=== PATIENT | male | born 1930 | race Caucasian/White ===

== ENCOUNTER 2018-02-06 01:04 | Inpatient (IN) | payer MEDICARE, MEDICAID ==
[2018-02-06] VITALS (8 sets, daily range): BP systolic 104–127; BP diastolic 59–75
[~2018-02-06] VITALS: Ht 182.9 cm; Wt 78.5 kg
[2018-02-06] MEDS ORDERED: Albuterol ud Inhalation HHN ONE (01:15)
--- NOTE | 2018-02-06 01:18 | Emergency Room Report ---
History of Present Illness General Chief Complaint: Dyspnea/Respdistress Source: Family Member, Medical Record, EMS Present Illness HPI Is an 87-year-old male who has history of dementia and coronary disease, A. fib. He presents with chief complaint respiratory distress. Onset was acute and occurred just prior to arrival. At baseline he is confused but per EMS, mental status as worse. No fever or chills noted. No nausea no vomiting. EMS put him on oxygen and brought him here. Unable to get any history from this patient because of his condition and mental status. Allergies: Coded Allergies: APIXABAN (Unverified Allergy, Unknown, 02/06/18) BUMETANIDE (Unverified Allergy, Unknown, 02/06/18) SPIRONOLACTONE (Unverified Allergy, Unknown, 02/06/18) Patient History Past Medical History: see triage record, old chart reviewed, HTN, CAD, CHF Past Surgical History: other Pertinent Family History: none Social History: Denies: smoking Immunizations: other Reviewed Nursing Documentation: PMH: Agreed; PSxH: Agreed Review of Systems Respiratory: Reports: shortness of breath All Other Systems: limited - secondary to medical condition Physical Exam Vital Signs Date Time Temp Pulse Resp B/P (MAP) Pulse Ox O2 Delivery O2 Flow Rate FiO2 02/06/18 00:59 80 127/67 vitals with hypoxia Sp02 EP Interpretation: abnormal General Appearance: moderate distress, thin, Chronically Ill Head: normocephalic, atraumatic Eyes: bilateral eye PERRL, bilateral eye EOMI ENT: dry mucus membranes Neck: full range of motion, supple, no meningismus Respiratory: chest non-tender, accessory muscle use, rales, rhonchi Cardiovascular #1: regular rate, rhythm, no murmur Gastrointestinal: normal bowel sounds, non tender, no mass, no organomegaly, no bruit, non-distended Musculoskeletal: back normal, normal range of motion Neurologic: other - moan to painful stimuli Skin: warm/dry Procedures Critical Care Time Critical Care Time Critical care is mandated in this patient who presented with sepsis and CHF. Patient require my urgent intervention to attenuate the risks of metabolic collapse which may lead to cardiovascular collapse and . Critical care time is 35 minutes excluding any reportable procedure. Critical care time included evaluation, multiple reevaluation, looking at old charts, interpreting laboratory and diagnostic data, discussing case with patient and family and consultants, and charting. Medical Decision Making Diagnostic Impression: Primary Impression: CHF (congestive heart failure) Qualified Codes: I50.9 - Heart failure, unspecified Additional Impressions: Sepsis Qualified Codes: A41.9 - Sepsis, unspecified organism UTI (urinary tract infection) Qualified Codes: N30.00 - Acute cystitis without hematuria CKD (chronic kidney disease) Qualified Codes: N18.9 - Chronic kidney disease, unspecified Anemia Qualified Codes: D64.9 - Anemia, unspecified Proteinuria Qualified Codes: R80.9 - Proteinuria, unspecified Toxic metabolic encephalopathy ER Course Patient presents with respiratory distress and has a fever 102. Urine show evidence of infection. His respiratory distress much improved with breathing treatment and BiPAP. Antibiotic started. No obvious pneumonia. No evidence of PE, dissection, temp and not to name a few. We'll admit to stepdown unit. I contacted Dr. Berry for admission. Lab Results Impression labs showed elevated BNP EKG Diagnostic Results Rate: normal Rhythm: other - paced rhythm Rhythm Strip Diag. Results Rhythm Strip Time: 01:18 EP Interpretation: yes Rate: 76 Rhythm: NSR, no PVC's, no ectopy Chest X-Ray Diagnostic Results Chest X-Ray Diagnostic Results : Chest X-Ray Ordered: Yes # of Views/Limited/Complete: 1 View Indication: Shortness of Breath EP Interpretation: Yes Interpretation: no consolidation, no effusion, no pneumothorax, other - cardiomegaly with vascular congestion Impression: Other - CHF Electronically Signed by: Aj Page MD Last Vital Signs Date Time Temp Pulse Resp B/P (MAP) Pulse Ox O2 Delivery O2 Flow Rate FiO2 02/06/18 00:59 80 127/67 Status: improved Disposition: ADMITTED INPATIENT Condition: Serious AJ PAGE M.D. Feb 06, 2018 01:18
[2018-02-06] MEDS ORDERED: Acetaminophen 650 MG SUPP RECTAL ONE (01:30)
[2018-02-06 01:36] LABS: BASOPHILS % (AUTO) 0.4 % (0.0-2.0); BILIRUBIN, URINE NEGATIVE (NEGATIVE); COLOR,URINE PALE YELLOW; EOSINOPHILS % (AUTO) 1.4 % (0.0-3.0); GLUCOSE, URINE (UA) NEGATIVE (NEGATIVE); HEMATOCRIT 31.4 % (42.0-52.0); HEMOGLOBIN 9.9 G/DL (14.2-18.0); KETONES,URINE NEGATIVE (NEGATIVE); LEUKOCYTE ESTERASE ,URINE 3+ (NEGATIVE); LYMPHOCYTES % (AUTO) 29.8 % (20.0-45.0); MEAN CORPUSCULAR VOLUME 102 FL (80-99); MONOCYTES % (AUTO) 9.3 % (1.0-10.0); NEUTROPHILS % (AUTO) 59.1 % (45.0-75.0); NITRITE,URINE NEGATIVE (NEGATIVE); PH,URINE 5 (4.5-8.0); PLATELET COUNT 203 K/UL (150-450); PROTEIN,URINE 2+ (NEGATIVE); RED BLOOD COUNT 3.08 M/UL (4.70-6.10); RED CELL DISTRIBUTION WIDTH 14.9 % (11.6-14.8); UROBILINOGEN,URINE NORMAL MG/DL (0.0-1.0); WHITE BLOOD COUNT 5.1 K/UL (4.8-10.8)
[2018-02-06 01:45] LABS: APPEARANCE,URINE SLIGHTLY CLOUDY
[2018-02-06 01:46] LABS: ANION GAP 4 mmol/L (5-15); BLOOD UREA NITROGEN 51 mg/dL (7-18); CALCIUM 9.3 MG/DL (8.5-10.1); CARBON DIOXIDE 35 MMOL/L (21-32); CHLORIDE 107 MMOL/L (98-107); CREATININE 2.2 MG/DL (0.55-1.30); POTASSIUM 4.2 MMOL/L (3.5-5.1); SODIUM 146 MMOL/L (136-145)
[2018-02-06 01:48] LABS: INR 1.1 (0.9-1.1)
[2018-02-06 02:00] LABS: ALANINE AMINOTRANSFERASE < 6 U/L (12-78); ALBUMIN/GLOBULIN RATIO 0.7 (1.0-2.7); ALKALINE PHOSPHATASE 84 U/L (46-116); ASPARTATE AMINO TRANSFERASE 13 U/L (15-37); BILIRUBIN,TOTAL 0.4 MG/DL (0.2-1.0); CKMB 0.8 NG/ML (0.0-3.6); CREATINE KINASE 36 U/L (26-308)
[2018-02-06] MEDS ORDERED: COUMADIN3 MG ORAL (02:07)
[2018-02-06] MEDS ORDERED: DIGOXIN125 MCG ORAL (02:07)
[2018-02-06] MEDS ORDERED: MILK OF MA400 MG/51 ORAL (02:07)
[2018-02-06] MEDS ORDERED: CALCIUM CARBON500 M1 PO (02:07)
[2018-02-06] MEDS ORDERED: LANTUS SOL100 UNIT/1 SUBQ (02:07)
[2018-02-06] MEDS ORDERED: CATAPRES0.1 MG ORAL (02:07)
[2018-02-06] MEDS ORDERED: FUROSEMIDE40 MG ORAL (02:07)
[2018-02-06] MEDS ORDERED: Cefepime HCl 1 GM in D5W 55 ML IVPB ONE (02:15)
[2018-02-06] MEDS ORDERED: VITAMIN C250 MG ORAL (02:42)
[2018-02-06] MEDS ORDERED: VITAMIN B COMP1 EAC2 ORAL (02:42)
[2018-02-06] MEDS ORDERED: MULTIVITAMINS1 EAC2 ORAL (02:42)
[2018-02-06] MEDS ORDERED: OMEPRAZOLE20 M2 ORAL (02:42)
[2018-02-06] MEDS ORDERED: ACETAMINOPHEN325 M1 ORAL (02:42)
[2018-02-06] MEDS ORDERED: SENOKOT8.6 MG PO (02:42)
[2018-02-06] MEDS ORDERED: NAMENDA10 MG ORAL (02:42)
[2018-02-06] MEDS ORDERED: SINEMET 25-1001 EAC1 ORAL (02:42)
[2018-02-06] MEDS ORDERED: VITAMIN D22000 UNIT PO (02:42)
[2018-02-06] MEDS ORDERED: BISACODYL10 M1 RC (02:42)
[2018-02-06] MEDS ORDERED: PROSCAR5 MG ORAL (02:49)
[2018-02-06] MEDS ORDERED: GLUCAGON EMERGEN1 MG IJ (02:49)
[2018-02-06] MEDS ORDERED: GLUCOSE4 GM PO (02:49)
[2018-02-06] MEDS ORDERED: LATANOPROST2.5 ML BOTH EYES (02:49)
[2018-02-06] MEDS ORDERED: COLACE100 MG ORAL (02:49)
[2018-02-06] MEDS ORDERED: DUONEB 0.5-3(2.53 ML HHN (02:49)
[2018-02-06] MEDS ORDERED: FERROUS SU220 MG/51 PO (02:49)
[2018-02-06] MEDS ORDERED: FOLIC ACID1 MG ORAL (02:49)
[2018-02-06] MEDS ORDERED: TRUSOPT10 ML RIGHT EYE (02:49)
[2018-02-06] MEDS ORDERED: Albuterol/Ipratropium 3ml neb HHN SCH ×2 (09:00→09:18)
[2018-02-06] MEDS: Docusate 100mg cap ORAL SCH ×2 (09:00→17:18)
[2018-02-06] MEDS: Memantine 10mg tab ORAL SCH ×2 (09:00→17:18)
[2018-02-06] MEDS: Vitamin D 1000 IU Tab ORAL SCH (09:00)
[2018-02-06] MEDS: Digoxin 0.125mg tab ORAL SCH (09:00)
[2018-02-06] MEDS: Milk of Magnesia 30ml Ud ORAL SCH (09:00)
[2018-02-06] MEDS: Levodopa/Carbidopa 25/100 tab ORAL SCH ×4 (09:00→21:00)
[2018-02-06] MEDS: Ascorbic Acid 500mg tab ORAL SCH (09:00)
[2018-02-06] MEDS: Levemir Flexpen SUBQ SCH ×2 (09:19→18:00)
[2018-02-06] MEDS ORDERED: Enoxaparin 80mg Inj SUBQ SCH (10:00)
--- NOTE | 2018-02-06 11:15 | History and Physical Report ---
DATE OF ADMISSION: 02/06/2018 CHIEF COMPLAINT: Shortness of breath, sepsis, urinary tract infection. HISTORY OF PRESENT ILLNESS: The patient is an unfortunate 87-year-old male. He has history of COPD, congestive heart failure, paroxysmal AFib, diabetes, and hypertension. He has prior history of aspiration pneumonia and recent history of urinary tract infection. He was transferred from a shelter facility after staff noted that the patient was poorly responsive. He was unable to be aroused. Vital signs were stable. On evaluation in the emergency room, the patient had evidence of urinary tract infection. He was also short of breath. He also had evidence of congestive heart failure on x-ray. He was started on Lasix, BiPAP. He was given intravenous antibiotics for infection and is now admitted for further evaluation and care. PAST MEDICAL HISTORY: As above. PAST SURGICAL HISTORY: None. CURRENT MEDICATIONS: Reconciled and reviewed. ALLERGIES: Include apixaban, Bumex, Aldactone. FAMILY HISTORY: Noncontributory. SOCIAL HISTORY: There is no known history of tobacco, ethanol, or drugs. REVIEW OF SYSTEMS: From the patient is unobtainable as he is currently weak. PHYSICAL EXAMINATION: VITAL SIGNS: Temperature 100 degrees, pulse 75, respirations 20, blood pressure 116/75. GENERAL: The patient is a well-developed male, in no apparent distress. HEART: Regular rate and rhythm. LUNGS: Clear. ABDOMEN: Soft, nontender, nondistended. EXTREMITIES: Without clubbing, cyanosis, or edema. LABORATORY DATA: White count was 5, hemoglobin 10, hematocrit 31, and platelets of 203,000. Coags are normal. Sodium 146, potassium 4.2, chloride 107, bicarbonate 35, BUN 51, creatinine 2.2. Troponin 0.074. Urine showed 40 to 60 wbc's. ASSESSMENT: This is a pleasant, but unfortunate male with complaints of sepsis secondary to UTI and CHF exacerbation. PROBLEM LIST: 1. Sepsis. 2. UTI. 3. Respiratory failure. 4. CHF exacerbation. 5. AFib. 6. Hypertension. 7. Diabetes. 8. History of chronic kidney disease. PLAN: We will continue BiPAP. Check an ABG. Supplemental oxygen as needed. We will wean as able. Pulmonary consultation will be obtained. Continue broad-spectrum antibiotics. Follow up cultures. ID consultation. Continue antiplatelet therapy and Coumadin. Cardiology consultation will also be obtained. The patient has advanced directive for DNR. We will monitor the patient's renal function and volume status closely while on diuretic therapy. Sai Berry M.D. DR: Majo JOB#: [id number] CC:
[2018-02-06] MEDS: Albuterol/Ipratropium 3ml neb HHN SCH ×4 (11:19→22:52)
--- NOTE | 2018-02-06 12:08 | Diagnostic Imaging Report ---
Indication: Shortness of breath shortness of breath Technique: One view of the chest Comparison: none Findings: There is thoracic scoliotic deformity. There is some atelectasis in the left perihilar region and left lung base. Lungs and pleural spaces are otherwise grossly clear. There is a left chest biventricular AICD. The heart is upper limits of normal in size Impression: Left basilar and perihilar atelectasis. No definite acute process otherwise Other findings as noted
[2018-02-06] MEDS: NovoLOG Insulin Flexpen SUBQ SCH ×3 (12:46→21:00)
[2018-02-06] MEDS: Dorzolamide 2% 10ml Btl RIGHT EYE SCH ×2 (13:00→18:43)
[2018-02-06] MEDS: Piperacillin/Tazobactam 3.375 GM in D5W 110 ML IVPB SCH ×2 (14:02→22:09)
[2018-02-06] MEDS ORDERED: Warfarin Sodium 3mg ORAL ONE (17:00)
--- NOTE | 2018-02-06 20:30 | Consultation ---
DATE OF CONSULTATION: 02/06/2018 CONSULTING PHYSICIAN: Imer Garcia M.D. REFERRING PHYSICIAN: Sai Berry M.D. REASON FOR CONSULTATION: For evaluation of UTI. HISTORY OF PRESENT ILLNESS: This is an 87-year-old male, who is known to me from recent evaluation at [facility]. The patient has a history of BPH. He has a history of hematuria. He was admitted to the hospital because of altered mental status. He was poorly arousable. He was evaluated in the emergency room, was noted to have pyuria and possible UTI. Urology evaluation is requested. Chahal catheter was placed at the time of admission and is currently indwelling. PAST MEDICAL HISTORY: Significant for above. Also, history of COPD, CHF, atrial fibrillation, diabetes, hypertension, and aspiration pneumonia. PAST SURGICAL HISTORY: Unknown. CURRENT MEDICATIONS: Here in the hospital, the patient is on , Senokot, vitamin D, Zosyn, NovoLog, albuterol, Lovenox, Trusopt, calcium carbonate, Sinemet, Catapres, digoxin, Colace, finasteride, folate, MOM, Namenda, multivitamin, vitamin D, Feosol, Protonix, Lasix, and Coumadin. ALLERGIES: To apixaban, , spironolactone. SOCIAL HISTORY: Resident of half-way. FAMILY HISTORY: Unable to obtain. REVIEW OF SYSTEMS: Difficult to obtain. PHYSICAL EXAMINATION: GENERAL: Elderly male. VITAL SIGNS: Temperature is 98.7 degrees, blood pressure 111/60, pulse 75, and respirations are 20. HEENT: Normocephalic. NECK: Supple. ABDOMEN: Soft. Chahal is in place. Urine is still grossly yellow. LABORATORY AND DIAGNOSTIC DATA: His BUN is 51, creatinine 2.2, and potassium is 4.2. White count 5.1, hemoglobin 9.9, and platelets are 203. Urinalysis shows 0 to 2 rbc's, 40 to 60 wbc's and 2+ protein. Diagnostic imaging studies; he had a chest x-ray, which showed left basilar and perihilar atelectasis. IMPRESSION: 1. Pyuria and probable urinary tract infection. 2. Proteinuria. 3. Benign prostatic hypertrophy history. 4. Urinary retention. 5. Neurogenic bladder. 6. Chronic renal insufficiency. PLAN AND DISCUSSION: The patient needs to continue with antibiotics as ordered. We will follow up on the results of urine culture and adjust accordingly. The patient has a Chahal catheter indwelling. He is on anticoagulation, this will be monitored and irrigated p.r.n. if he develops gross hematuria. He is to continue with finasteride as ordered. I will also add Flomax 0.4 mg nightly in anticipation of a voiding trial in the future. The patient will need to have cystoscopy at some point and we will consider upper tract imaging studies. Thank you, Dr. Berry, for asking me to participate in this consultation. Imer Garcia M.D. DR: DANIEL JOB#: [id number] CC:
[2018-02-06] MEDS: Latanoprost 0.005% Opth 2.5ml Soln BOTH EYES SCH (20:49)
[2018-02-06] MEDS: Vitamin B Complex Tab ORAL SCH (21:00)
[2018-02-06] MEDS: Sennosides 8.6mg ORAL SCH (21:00)
[2018-02-06] MEDS: Tamsulosin 0.4mg cap ORAL SCH (21:00)
--- NOTE | 2018-02-06 21:30 | Consultation ---
DATE OF CONSULTATION: 02/06/2018 INFECTIOUS DISEASES CONSULTATION CONSULTING PHYSICIAN: Anu Langston M.D. REFERRING PHYSICIAN: Sai Berry M.D. REASON FOR CONSULTATION: Urinary tract infection. HISTORY OF PRESENTING ILLNESS: This is an 87-year-old gentleman with history of diabetes, hypertension, chronic obstructive pulmonary disease, congestive heart failure, and atrial fibrillation, who comes in from a senior care facility as he was unable to be aroused and was poorly responsive. He had a chest x-ray, which showed congestive heart failure. He was also found to have urinary tract infection and an Infectious Diseases consultation has been obtained for antibiotics. PAST MEDICAL HISTORY: 1. History of diabetes. 2. Hypertension. 3. Chronic obstructive pulmonary disease. 4. Congestive heart failure. 5. Atrial fibrillation. MEDICATIONS: As an inpatient, he is on Xalatan drops, Senokot, vitamin B complex, Coumadin, Zosyn, insulin, ipratropium and albuterol, Trusopt, enoxaparin, calcium carbonate, carbidopa, levodopa, clonidine, digoxin, docusate, finasteride, folic acid, milk of magnesia, Namenda, multivitamin, ascorbic acid, vitamin D, ferrous sulfate, insulin, Protonix, Lasix, warfarin, Tylenol, and Dulcolax. ALLERGIES: 1. Apixaban. 2. Bumetanide. 3. Spironolactone. SOCIAL HISTORY: No history of smoking, alcohol, or drug use. FAMILY HISTORY: Unknown. REVIEW OF SYSTEMS: Unable to obtain currently. PHYSICAL EXAMINATION: VITAL SIGNS: Temperature of 98.1, T-max of 102, pulse of 78, respiratory rate of 22, blood pressure of 104/64, and O2 saturation of 96%. HEENT: Pupils equally reactive to light and accommodation. Mouth appears clean without thrush. NECK: Supple. No adenopathy. No JVD. CARDIOVASCULAR: Regular rate and rhythm. No murmurs. LUNGS: Clear to auscultation bilaterally. No crackles. No wheezes. ABDOMEN: Soft and nontender. No organomegaly. EXTREMITIES: No cyanosis, no clubbing, no edema. LABORATORY AND DIAGNOSTIC DATA: White count 5.1, hemoglobin 9.9, hematocrit 31.4, MCV 102, and platelet count of 203,000 with neutrophils of 59%. Sodium 146, potassium 4.2, chloride 109, bicarb 35, BUN 51, creatinine 2.2, glucose 228, and calcium 9.3. Total bilirubin 0.4. AST 13, ALT less than 6, and alkaline phosphatase 84. CK of 36 and CK-MB 0.8. Troponin 0.074. Beta-natriuretic peptide 11,646. Total protein 7.6. Albumin of 3. UA is showing 40 to 60 white cells. Urine cultures are pending. Chest x-ray is showing left base and perihilar atelectasis. ASSESSMENT: This is an 87-year-old gentleman with history of diabetes, hypertension, and chronic obstructive pulmonary disease, who comes in with, 1. Urinary tract infection. 2. Renal failure. 3. Congestive heart failure. PLAN: 1. Continue Zosyn for now. 2. We will follow up cultures and adjust antibiotics accordingly. I would like to thank, Dr. Berry, for this consultation. Anu Langston M.D. DR: SHANE JOB#: [id number] CC: Sai Berry M.D.
[2018-02-07] VITALS: BP 113/67
--- NOTE | 2018-02-07 00:30 | Consultation ---
DATE OF CONSULTATION: 02/06/2018 CARDIOLOGY CONSULTATION CONSULTING PHYSICIAN: Charlie Ashraf M.D. REQUESTING PHYSICIAN: Sai Berry M.D. REASON FOR CONSULTATION: Congestive heart failure in the setting of cardiomyopathy with cardiac defibrillator. HISTORY OF PRESENT ILLNESS: This 87-year-old male with multiple cardiopulmonary problems and a cardiac defibrillator was noted to be increasingly withdrawn, lethargic, and poorly responsive prompting his transfer to this emergency room. A diagnostic workup was undertaken and hospitalization initiated with concerns raised over an acute urinary infection, sepsis, and congestive heart failure. The patient was recently hospitalized at [facility] for urinary infection and aspiration pneumonia. His course was complicated by cardiac arrhythmias and congestive heart failure. He also has had episodes of hypovolemia and dehydration with acute renal failure. PAST MEDICAL HISTORY: Includes hypertensive heart disease, chronic systolic and diastolic congestive heart failure, cardiac defibrillator, paroxysmal atrial fibrillation, COPD, hypertensive heart disease, [id number] diabetes mellitus, prostatic hypertrophy, recurrent urinary tract infections, chronic kidney disease. MEDICATIONS: Prior to admission, reviewed and reconciled. ALLERGIES: Include Aldactone, bumetanide, Apixaban. FAMILY HISTORY: Noncontributory. SOCIAL HISTORY: Prior smoker. No alcohol or substance abuse at this time. REVIEW OF SYSTEMS: Not obtainable from patient presently. PHYSICAL EXAMINATION: GENERAL: Withdrawn and lethargic. VITAL SIGNS: Blood pressure 116/75, pulse 75, respiratory rate 20, temperature 100. HEENT: Temporal wasting. Pale conjunctivae. Arcus senilis. Oropharynx clear. Mucous membranes dry. NECK: Supple. Jugular venous pressure is slightly elevated. There is some accessory muscle use. LUNGS: With coarse breath sounds. Scattered rhonchi. CARDIAC: Regular rhythm and rate. Normal S1, paradoxically split S2. A 1/6 systolic apical murmur. ABDOMEN: Soft and nontender. EXTREMITIES: No clubbing, cyanosis, or edema. LABORATORY DATA: White count 5, hemoglobin 10. Sodium 146, potassium 4.2, chloride 107, bicarb 35, BUN 51, creatinine 2.2. Troponin 0.074. Urinalysis 40 to 60 white cells. EKG reveals atrial fibrillation with ventricular pacing. Chest x-ray reveals left basilar and perihilar atelectasis with no obvious infiltrate and left chest biventricular defibrillator. Natriuretic peptide 11,000. Albumin 3. IMPRESSION: 1. Urinary tract infection with sepsis. 2. Acute respiratory insufficiency. 3. Acute on chronic systolic and diastolic congestive heart failure. 4. Possible aspiration pneumonia. 5. Paroxysmal atrial fibrillation. 6. Cardiac defibrillator. 7. History of ventricular tachycardia. 8. Hypertensive heart disease. 9. Type 2 diabetes mellitus. 10. 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 11. Dehydration. 12. Hypernatremia. 13. Acute on chronic kidney injury. 14. Metabolic alkalosis. 15. Mild protein-calorie malnutrition. 16. Cardiac defibrillator. 17. History of cardiac arrhythmias, atrial and ventricular. 18. Acute myocardial ischemia and possible [id number] myocardial infarction. PLAN: 1. Hold diuretics. 2. Hypotonic IV fluids. 3. Antimicrobials. 4. DVT and stress ulcer prophylaxis. 5. Serial troponin levels. 6. Maximize anti-failure and antianginal regimen. 7. Initiate anti-platelet therapy with aspirin. 8. Continue with warfarin to INR 2-3 for cardioembolic prophylaxis. Charlie Ashraf M.D. DR: Abner JOB#: [id number] CC: ZAKIA
[2018-02-07] MEDS: Levodopa/Carbidopa 25/100 tab ORAL SCH ×6 (01:00→20:42)
[2018-02-07] MEDS: Albuterol/Ipratropium 3ml neb HHN SCH ×6 (02:31→23:21)
[2018-02-07 04:00] VITALS: BP 100/65
[2018-02-07] MEDS: Piperacillin/Tazobactam 3.375 GM in D5W 110 ML IVPB SCH ×3 (05:52→21:56)
[2018-02-07 06:12] LABS: BASOPHILS % (AUTO) 0.5 % (0.0-2.0); EOSINOPHILS % (AUTO) 1.4 % (0.0-3.0); HEMATOCRIT 32.8 % (42.0-52.0); HEMOGLOBIN 10.3 G/DL (14.2-18.0); LYMPHOCYTES % (AUTO) 23.1 % (20.0-45.0); MEAN CORPUSCULAR VOLUME 103 FL (80-99); MONOCYTES % (AUTO) 11.4 % (1.0-10.0); NEUTROPHILS % (AUTO) 63.6 % (45.0-75.0); PLATELET COUNT 171 K/UL (150-450); RED BLOOD COUNT 3.18 M/UL (4.70-6.10); RED CELL DISTRIBUTION WIDTH 14.9 % (11.6-14.8); WHITE BLOOD COUNT 5.3 K/UL (4.8-10.8)
[2018-02-07 06:30] LABS: INR 1.1 (0.9-1.1)
[2018-02-07] MEDS: NovoLOG Insulin Flexpen SUBQ SCH ×4 (06:30→20:51)
[2018-02-07 06:44] LABS: ALANINE AMINOTRANSFERASE 11 U/L (12-78); ALBUMIN/GLOBULIN RATIO 0.7 (1.0-2.7); ALKALINE PHOSPHATASE 82 U/L (46-116); ANION GAP 9 mmol/L (5-15); ASPARTATE AMINO TRANSFERASE 17 U/L (15-37); BILIRUBIN,TOTAL 0.5 MG/DL (0.2-1.0); BLOOD UREA NITROGEN 55 mg/dL (7-18); CALCIUM 9.7 MG/DL (8.5-10.1); CARBON DIOXIDE 34 MMOL/L (21-32); CHLORIDE 107 MMOL/L (98-107); CHOLESTEROL 207 MG/DL (< 200); CREATININE 1.9 MG/DL (0.55-1.30); HDL CHOLESTEROL 45 MG/DL (40-60); SODIUM 150 MMOL/L (136-145); TRIGLYCERIDES 146 MG/DL (30-150)
--- NOTE | 2018-02-07 07:33 | Urology Progress Note ---
Assessment/Plan Assessment/Plan 1. Pyuria and probable urinary tract infection. 2. Proteinuria. 3. Benign prostatic hypertrophy history. 4. Urinary retention. 5. Neurogenic bladder. 6. Chronic renal insufficiency. camarena indwelling abx as ordered flomax and proscar cysto later Subjective Allergies: Coded Allergies: APIXABAN (Unverified Allergy, Unknown, 02/06/18) BUMETANIDE (Unverified Allergy, Unknown, 02/06/18) SPIRONOLACTONE (Unverified Allergy, Unknown, 02/06/18) Subjective non-verbal Objective Last 24 Hour Vital Signs Date Time Temp Pulse Resp B/P (MAP) Pulse Ox O2 Delivery O2 Flow Rate FiO2 02/07/18 07:13 Nasal Cannula 3.0 32 02/07/18 07:12 99 16 100 Nasal Cannula 3.0 32 02/07/18 06:55 75 16 98 Nasal Cannula 3.0 32 02/07/18 06:55 98 Nasal Cannula 3.0 32 02/07/18 04:00 98.7 75 20 100/65 100 Nasal Cannula 3.0 98.7 02/07/18 04:00 75 02/07/18 02:49 75 16 100 Nasal Cannula 3.0 32 02/07/18 02:42 75 16 100 Nasal Cannula 3.0 32 02/07/18 00:00 98.3 75 20 113/67 100 Nasal Cannula 3.0 98.3 02/07/18 00:00 75 02/06/18 22:52 75 20 100 Nasal Cannula 3.0 32 02/06/18 22:45 75 18 100 Nasal Cannula 3.0 32 02/06/18 22:32 62 115/68 02/06/18 20:00 98.9 75 20 121/67 100 Nasal Cannula 3.0 98.9 02/06/18 20:00 75 02/06/18 19:22 75 18 100 Nasal Cannula 3.0 32 02/06/18 19:11 78 20 100 Nasal Cannula 3.0 32 02/06/18 19:07 Nasal Cannula 3.0 32 02/06/18 19:07 100 Nasal Cannula 3.0 32 02/06/18 16:00 98.7 75 20 111/60 100 Nasal Cannula 3.0 98.7 02/06/18 16:00 75 02/06/18 16:00 3.0 02/06/18 15:07 99 Nasal Cannula 3.0 32 02/06/18 15:06 75 20 99 Nasal Cannula 3.0 32 02/06/18 14:55 75 22 100 Venturi Mask 8.0 40 02/06/18 14:14 78 22 Venturi Mask 8.0 40 02/06/18 12:37 40 02/06/18 12:10 96 Venturi Mask 8.0 40 02/06/18 12:10 Venturi Mask 8.0 40 02/06/18 12:00 98.6 75 20 105/59 100 Bi-pap 40 98.6 02/06/18 12:00 75 02/06/18 11:39 75 19 98 Bi-pap 35 02/06/18 11:19 75 21 100 Bi-pap 35 02/06/18 11:19 75 21 100 Facial 35 02/06/18 10:30 15.0 35 02/06/18 10:11 35 02/06/18 10:00 15.0 50 02/06/18 09:34 75 16 100 Bi-pap 50 02/06/18 09:24 75 16 100 Bi-pap 50 02/06/18 09:00 75 17 100 Facial 50 02/06/18 08:00 15.0 50 02/06/18 08:00 98.1 75 22 104/64 100 Bi-pap 50 98.1 02/06/18 08:00 75 Intake and Output 02/06/18 02/07/18 19:00 07:00 Intake Total 110.0 ml 137.5 ml Output Total 1300 ml 600 ml Balance -1190.0 ml -462.5 ml IV Total 110.0 ml 137.5 ml Output Urine Total 1300 ml 600 ml Microbiology Date/Time Source Procedure Growth Status 02/06/18 01:07 Blood Blood Culture - Preliminary NO GROWTH AFTER 24 HOURS Resulted Current Medications Medications (Trade) Dose Ordered Sig/Karolina Route PRN Reason Start Time Stop Time Status Last Admin Dose Admin Acetaminophen (Tylenol) 650 mg Q6H PRN ORAL Mild Pain (Pain Scale 1-3) 02/06/18 08:15 03/08/18 08:14 Albuterol/ Ipratropium (Albuterol/ Ipratropium) 3 ml Q4HRT HHN 02/06/18 11:00 02/11/18 10:59 02/07/18 07:03 Ascorbic Acid (Vitamin C) 500 mg DAILY ORAL 02/06/18 09:00 03/08/18 08:59 Aspirin (ASA) 81 mg DAILY ORAL 02/07/18 09:00 03/09/18 08:59 Bisacodyl (Dulcolax) 10 mg DAILYPRN PRN RECTAL Constipation 02/06/18 08:15 03/08/18 08:14 Calcium Carbonate (Os-Rivas) 1,250 mg BIDPC ORAL 02/06/18 09:00 03/08/18 08:59 Carbidopa/Levodopa (Sinemet 25/100) 1 tab Q4HR ORAL 02/06/18 09:00 03/08/18 08:59 Carvedilol (Coreg) 3.125 mg EVERY 12 HOURS ORAL 02/06/18 22:32 03/08/18 22:31 Clonidine HCl (Catapres Tab) 0.1 mg Q4H PRN ORAL SBP greater than 160 02/06/18 09:00 03/08/18 08:59 Dextrose (Dextrose 50%) 25 ml STAT PRN IV Hypoglycemia 02/06/18 08:15 03/08/18 08:14 Dextrose (Dextrose 50%) 50 ml STAT PRN IV Hypoglycemia 02/06/18 08:15 03/08/18 08:14 Digoxin (Lanoxin) 0.125 mg DAILY ORAL 02/06/18 09:00 03/08/18 08:59 Docusate Sodium (Colace) 100 mg TWICE A DAY ORAL 02/06/18 09:00 03/08/18 08:59 Dorzolamide HCl (Trusopt) 1 drop TWICE A DAY RIGHT EYE 02/06/18 10:00 03/08/18 09:59 02/06/18 18:43 Ferrous Sulfate (Feosol) 325 mg THREE TIMES A DAY ORAL 02/06/18 09:00 03/08/18 08:59 Finasteride (Proscar) 5 mg DAILY ORAL 02/06/18 09:00 03/08/18 08:59 Folic Acid (Folate) 1 mg DAILY ORAL 02/06/18 09:00 03/08/18 08:59 Furosemide (Lasix) 40 mg EVERY 12 HOURS IV 02/06/18 09:00 03/08/18 08:59 02/06/18 20:50 Insulin Aspart (NovoLOG) BEFORE MEALS AND HS SUBQ 02/06/18 11:30 03/08/18 11:29 02/06/18 18:46 Insulin Detemir (Levemir) 8 units BID SUBQ 02/06/18 09:00 03/08/18 08:59 02/06/18 09:19 Latanoprost (Xalatan) 1 drop BEDTIME BOTH EYES 02/06/18 21:00 03/08/18 20:59 02/06/18 20:49 Magnesium Hydroxide (Mom) 30 ml DAILY ORAL 02/06/18 09:00 03/08/18 08:59 Memantine (Namenda) 10 mg TWICE A DAY ORAL 02/06/18 09:00 03/08/18 08:59 Multivitamins (Multivitamins) 1 tab DAILY ORAL 02/06/18 09:00 03/08/18 08:59 Pantoprazole (Protonix) 40 mg DAILY ORAL 02/06/18 09:00 03/08/18 08:59 Piperacillin Sod/ Tazobactam Sod 3.375 gm/Dextrose 110 ml @ 27.5 mls/hr EVERY 8 HOURS IVPB 02/06/18 14:00 02/11/18 13:59 02/07/18 05:52 Sennosides (Senokot) 1 tab BEDTIME ORAL 02/06/18 21:00 03/08/18 20:59 Tamsulosin HCl (Flomax) 0.4 mg BEDTIME ORAL 02/06/18 21:00 03/08/18 20:59 Vitamin B Complex (Vitamin B Complex) 1 tab BEDTIME ORAL 02/06/18 21:00 03/08/18 20:59 Vitamin D (Vitamin D) 1,000 intlu DAILY ORAL 02/06/18 09:00 03/08/18 08:59 Warfarin Sodium (Coumadin per pharmacy) 1 ea DAILY PRN MISC Per rx protocol 02/06/18 08:30 03/08/18 08:29 Laboratory Tests 02/06/18 08:07: Arterial Blood pH 7.420, Arterial Blood Partial Pressure CO2 51.7H, Arterial Blood Partial Pressure O2 147.6H, Arterial Blood HCO3 32.8H, Arterial Blood Oxygen Saturation 98.6H, Arterial Blood Base Excess 7.2, Laith Test Positive 02/07/18 04:20: White Blood Count 5.3, Red Blood Count 3.18L, Hemoglobin 10.3L, Hematocrit 32.8L , Mean Corpuscular Volume 103H, Mean Corpuscular Hemoglobin 32.4H, Mean Corpuscular Hemoglobin Concent 31.3L, Red Cell Distribution Width 14.9H, Platelet Count 171, Mean Platelet Volume 6.6, Neutrophils (%) (Auto) 63.6, Lymphocytes (%) (Auto) 23.1, Monocytes (%) (Auto) 11.4H, Eosinophils (%) (Auto) 1.4, Basophils (%) (Auto) 0.5, Prothrombin Time 12.0H, Prothromb Time International Ratio 1.1, Sodium Level 150H, Potassium Level 4.0, Chloride Level 107, Carbon Dioxide Level 34H, Anion Gap 9, Blood Urea Nitrogen 55H, Creatinine 1.9H, Estimat Glomerular Filtration Rate , Glucose Level 205H, Calcium Level 9.7 , Total Bilirubin 0.5, Aspartate Amino Transf (AST/SGOT) 17, Alanine Aminotransferase (ALT/SGPT) 11L, Alkaline Phosphatase 82, Total Protein 7.6, Albumin 3.0L, Globulin 4.6, Albumin/Globulin Ratio 0.7L, Triglycerides Level 146 , Cholesterol Level 207H, LDL Cholesterol 146H, HDL Cholesterol 45, Cholesterol/ HDL Ratio 4.6H Height (Feet): 6 Height (Inches): 0.00 Weight (Pounds): 153 Objective exam stable, camarena indwelling, urine grossly yellow STEVENSHTONYCARLOS Feb 07, 2018 07:33
[2018-02-07 08:00] VITALS: BP 121/65
[2018-02-07] MEDS: Dorzolamide 2% 10ml Btl RIGHT EYE SCH ×2 (08:42→17:48)
[2018-02-07] MEDS: Levemir Flexpen SUBQ SCH ×2 (08:54→17:49)
[2018-02-07] MEDS: Memantine 10mg tab ORAL SCH ×2 (09:00→17:15)
[2018-02-07] MEDS: Ascorbic Acid 500mg tab ORAL SCH (09:00)
[2018-02-07] MEDS: Milk of Magnesia 30ml Ud ORAL SCH (09:00)
[2018-02-07] MEDS: Aspirin Baby 81mg ORAL SCH (09:00)
[2018-02-07] MEDS: Vitamin D 1000 IU Tab ORAL SCH (09:00)
[2018-02-07] MEDS: Digoxin 0.125mg tab ORAL SCH (09:00)
[2018-02-07] MEDS: Docusate 100mg cap ORAL SCH ×2 (09:00→17:15)
--- NOTE | 2018-02-07 09:01 | General Progress Note ---
Assessment/Plan Problem List: (1) Anemia ICD Codes: D64.9 - Anemia, unspecified SNOMED: 111416094 Qualifiers: Qualified Codes: D64.9 - Anemia, unspecified (2) CKD (chronic kidney disease) ICD Codes: N18.9 - Chronic kidney disease, unspecified SNOMED: 895476212 Qualifiers: Qualified Codes: N18.9 - Chronic kidney disease, unspecified (3) Toxic metabolic encephalopathy ICD Codes: G92 - Toxic encephalopathy SNOMED: 058121345 (4) CHF (congestive heart failure) ICD Codes: I50.9 - Heart failure, unspecified SNOMED: 46118417 Qualifiers: Qualified Codes: I50.9 - Heart failure, unspecified (5) UTI (urinary tract infection) ICD Codes: N39.0 - Urinary tract infection, site not specified SNOMED: 13759471 Qualifiers: Qualified Codes: N30.00 - Acute cystitis without hematuria Status: stable, progressing Assessment/Plan iv abx swallow eval follow up cultures hypotonic fluids hold laisx per cards Subjective ROS Limited/Unobtainable: No Constitutional: Reports: malaise, weakness HEENT: Reports: no symptoms Cardiovascular: Reports: no symptoms Respiratory: Reports: no symptoms Gastrointestinal/Abdominal: Reports: no symptoms Genitourinary: Reports: no symptoms Neurologic/Psychiatric: Reports: pre-existing deficit Endocrine: Reports: no symptoms Hematologic/Lymphatic: Reports: no symptoms Allergies: Coded Allergies: APIXABAN (Unverified Allergy, Unknown, 02/06/18) BUMETANIDE (Unverified Allergy, Unknown, 02/06/18) SPIRONOLACTONE (Unverified Allergy, Unknown, 02/06/18) All Systems: reviewed and negative except above Subjective no events. w/o complaints. off bipap. feels better. labs reviewed. cards/id noted. Objective Last 24 Hour Vital Signs Date Time Temp Pulse Resp B/P (MAP) Pulse Ox O2 Delivery O2 Flow Rate FiO2 02/07/18 07:13 Nasal Cannula 3.0 32 02/07/18 07:12 99 16 100 Nasal Cannula 3.0 32 02/07/18 06:55 75 16 98 Nasal Cannula 3.0 32 02/07/18 06:55 98 Nasal Cannula 3.0 32 02/07/18 04:00 98.7 75 20 100/65 100 Nasal Cannula 3.0 98.7 02/07/18 04:00 75 02/07/18 02:49 75 16 100 Nasal Cannula 3.0 32 02/07/18 02:42 75 16 100 Nasal Cannula 3.0 32 02/07/18 00:00 98.3 75 20 113/67 100 Nasal Cannula 3.0 98.3 02/07/18 00:00 75 02/06/18 22:52 75 20 100 Nasal Cannula 3.0 32 02/06/18 22:45 75 18 100 Nasal Cannula 3.0 32 02/06/18 22:32 62 115/68 02/06/18 20:00 98.9 75 20 121/67 100 Nasal Cannula 3.0 98.9 02/06/18 20:00 75 02/06/18 19:22 75 18 100 Nasal Cannula 3.0 32 02/06/18 19:11 78 20 100 Nasal Cannula 3.0 32 02/06/18 19:07 Nasal Cannula 3.0 32 02/06/18 19:07 100 Nasal Cannula 3.0 32 02/06/18 16:00 98.7 75 20 111/60 100 Nasal Cannula 3.0 98.7 02/06/18 16:00 75 02/06/18 16:00 3.0 02/06/18 15:07 99 Nasal Cannula 3.0 32 02/06/18 15:06 75 20 99 Nasal Cannula 3.0 32 02/06/18 14:55 75 22 100 Venturi Mask 8.0 40 02/06/18 14:14 78 22 Venturi Mask 8.0 40 02/06/18 12:37 40 02/06/18 12:10 96 Venturi Mask 8.0 40 02/06/18 12:10 Venturi Mask 8.0 40 02/06/18 12:00 98.6 75 20 105/59 100 Bi-pap 40 98.6 02/06/18 12:00 75 02/06/18 11:39 75 19 98 Bi-pap 35 02/06/18 11:19 75 21 100 Bi-pap 35 02/06/18 11:19 75 21 100 Facial 35 02/06/18 10:30 15.0 35 02/06/18 10:11 35 02/06/18 10:00 15.0 50 02/06/18 09:34 75 16 100 Bi-pap 50 02/06/18 09:24 75 16 100 Bi-pap 50 02/06/18 09:00 75 17 100 Facial 50 Intake and Output 02/06/18 02/07/18 19:00 07:00 Intake Total 110.0 ml 137.5 ml Output Total 1300 ml 600 ml Balance -1190.0 ml -462.5 ml IV Total 110.0 ml 137.5 ml Output Urine Total 1300 ml 600 ml Laboratory Tests 02/07/18 04:20: White Blood Count 5.3, Red Blood Count 3.18L, Hemoglobin 10.3L, Hematocrit 32.8L , Mean Corpuscular Volume 103H, Mean Corpuscular Hemoglobin 32.4H, Mean Corpuscular Hemoglobin Concent 31.3L, Red Cell Distribution Width 14.9H, Platelet Count 171, Mean Platelet Volume 6.6, Neutrophils (%) (Auto) 63.6, Lymphocytes (%) (Auto) 23.1, Monocytes (%) (Auto) 11.4H, Eosinophils (%) (Auto) 1.4, Basophils (%) (Auto) 0.5, Prothrombin Time 12.0H, Prothromb Time International Ratio 1.1, Sodium Level 150H, Potassium Level 4.0, Chloride Level 107, Carbon Dioxide Level 34H, Anion Gap 9, Blood Urea Nitrogen 55H, Creatinine 1.9H, Estimat Glomerular Filtration Rate , Glucose Level 205H, Calcium Level 9.7 , Total Bilirubin 0.5, Aspartate Amino Transf (AST/SGOT) 17, Alanine Aminotransferase (ALT/SGPT) 11L, Alkaline Phosphatase 82, Total Protein 7.6, Albumin 3.0L, Globulin 4.6, Albumin/Globulin Ratio 0.7L, Triglycerides Level 146 , Cholesterol Level 207H, LDL Cholesterol 146H, HDL Cholesterol 45, Cholesterol/ HDL Ratio 4.6H Height (Feet): 6 Height (Inches): 0.00 Weight (Pounds): 153 General Appearance: WD/WN, alert Neck: supple Cardiovascular: regular rhythm Respiratory/Chest: chest wall non-tender, lungs clear, normal breath sounds, no respiratory distress Abdomen: normal bowel sounds, non tender, soft, no organomegaly Edema: no edema noted Arm (L), no edema noted Arm (R), no edema noted Leg (L), no edema noted Leg (R), no edema noted Pedal (L), no edema noted Pedal (R), no edema noted Generalized Sai Berry MD Feb 07, 2018 09:01
[2018-02-07 12:00] VITALS: BP 123/70
--- NOTE | 2018-02-07 13:53 | Infectious Diseases Prog Note ---
Assessment/Plan Assessment/Plan antibiotics : zosyn A 1. UTI 2. renal failure improving 3. COPD 4. CHF 5. diabetes 6. hypertension P 1. continue zosyn 2. will follow up cultures Subjective ROS Limited/Unobtainable: Yes Allergies: Coded Allergies: APIXABAN (Unverified Allergy, Unknown, 02/06/18) BUMETANIDE (Unverified Allergy, Unknown, 02/06/18) SPIRONOLACTONE (Unverified Allergy, Unknown, 02/06/18) Objective Vital Signs Last 24 Hour Vital Signs Date Time Temp Pulse Resp B/P (MAP) Pulse Ox O2 Delivery O2 Flow Rate FiO2 02/07/18 12:00 98.4 76 22 123/70 98 Nasal Cannula 2.0 98.4 02/07/18 11:44 75 02/07/18 11:12 83 16 98 Nasal Cannula 2.0 28 02/07/18 11:00 69 20 98 Nasal Cannula 3.0 32 02/07/18 08:00 98.6 76 20 121/65 96 Nasal Cannula 4.0 98.6 02/07/18 07:45 75 02/07/18 07:13 Nasal Cannula 3.0 32 02/07/18 07:12 99 16 100 Nasal Cannula 3.0 32 02/07/18 06:55 75 16 98 Nasal Cannula 3.0 32 02/07/18 06:55 98 Nasal Cannula 3.0 32 02/07/18 04:00 98.7 75 20 100/65 100 Nasal Cannula 3.0 98.7 02/07/18 04:00 75 02/07/18 02:49 75 16 100 Nasal Cannula 3.0 32 02/07/18 02:42 75 16 100 Nasal Cannula 3.0 32 02/07/18 00:00 98.3 75 20 113/67 100 Nasal Cannula 3.0 98.3 02/07/18 00:00 75 02/06/18 22:52 75 20 100 Nasal Cannula 3.0 32 02/06/18 22:45 75 18 100 Nasal Cannula 3.0 32 02/06/18 22:32 62 115/68 02/06/18 20:00 98.9 75 20 121/67 100 Nasal Cannula 3.0 98.9 02/06/18 20:00 75 02/06/18 19:22 75 18 100 Nasal Cannula 3.0 32 02/06/18 19:11 78 20 100 Nasal Cannula 3.0 32 02/06/18 19:07 Nasal Cannula 3.0 32 02/06/18 19:07 100 Nasal Cannula 3.0 32 02/06/18 16:00 98.7 75 20 111/60 100 Nasal Cannula 3.0 98.7 02/06/18 16:00 75 02/06/18 16:00 3.0 02/06/18 15:07 99 Nasal Cannula 3.0 32 02/06/18 15:06 75 20 99 Nasal Cannula 3.0 32 02/06/18 14:55 75 22 100 Venturi Mask 8.0 40 02/06/18 14:14 78 22 Venturi Mask 8.0 40 Height (Feet): 6 Height (Inches): 0.00 Weight (Pounds): 153 Respiratory/Chest: lungs clear Cardiovascular: normal rate, regular rhythm, no gallop/murmur Abdomen: soft, non tender Extremities: no edema Microbiology Date/Time Source Procedure Growth Status 02/06/18 01:07 Blood Blood Culture - Preliminary NO GROWTH AFTER 24 HOURS Resulted 02/06/18 01:07 Blood Blood Culture - Preliminary NO GROWTH AFTER 24 HOURS Resulted 02/06/18 01:07 Urine,Clean Catch Urine Culture - Preliminary NO GROWTH AFTER 24 HOURS Resulted Laboratory Tests Test 02/07/18 04:20 White Blood Count 5.3 K/UL (4.8-10.8) Red Blood Count 3.18 M/UL (4.70-6.10) L Hemoglobin 10.3 G/DL (14.2-18.0) L Hematocrit 32.8 % (42.0-52.0) L Mean Corpuscular Volume 103 FL (80-99) H Mean Corpuscular Hemoglobin 32.4 PG (27.0-31.0) H Mean Corpuscular Hemoglobin Concent 31.3 G/DL (32.0-36.0) L Red Cell Distribution Width 14.9 % (11.6-14.8) H Platelet Count 171 K/UL (150-450) Mean Platelet Volume 6.6 FL (6.5-10.1) Neutrophils (%) (Auto) 63.6 % (45.0-75.0) Lymphocytes (%) (Auto) 23.1 % (20.0-45.0) Monocytes (%) (Auto) 11.4 % (1.0-10.0) H Eosinophils (%) (Auto) 1.4 % (0.0-3.0) Basophils (%) (Auto) 0.5 % (0.0-2.0) Prothrombin Time 12.0 SEC (9.30-11.50) H Prothromb Time International Ratio 1.1 (0.9-1.1) Sodium Level 150 MMOL/L (136-145) H Potassium Level 4.0 MMOL/L (3.5-5.1) Chloride Level 107 MMOL/L (98-107) Carbon Dioxide Level 34 MMOL/L (21-32) H Anion Gap 9 mmol/L (5-15) Blood Urea Nitrogen 55 mg/dL (7-18) H Creatinine 1.9 MG/DL (0.55-1.30) H Estimat Glomerular Filtration Rate mL/min (>60) Glucose Level 205 MG/DL (74-106) H Calcium Level 9.7 MG/DL (8.5-10.1) Total Bilirubin 0.5 MG/DL (0.2-1.0) Aspartate Amino Transf (AST/SGOT) 17 U/L (15-37) Alanine Aminotransferase (ALT/SGPT) 11 U/L (12-78) L Alkaline Phosphatase 82 U/L (46-116) Total Protein 7.6 G/DL (6.4-8.2) Albumin 3.0 G/DL (3.4-5.0) L Globulin 4.6 g/dL Albumin/Globulin Ratio 0.7 (1.0-2.7) L Triglycerides Level 146 MG/DL (30-150) Cholesterol Level 207 MG/DL (< 200) H LDL Cholesterol 146 mg/dL (<100) H HDL Cholesterol 45 MG/DL (40-60) Cholesterol/HDL Ratio 4.6 (3.3-4.4) H Current Medications Medications (Trade) Dose Ordered Sig/Karolina Route PRN Reason Start Time Stop Time Status Last Admin Dose Admin Acetaminophen (Tylenol) 650 mg Q6H PRN ORAL Mild Pain (Pain Scale 1-3) 02/06/18 08:15 03/08/18 08:14 Albuterol/ Ipratropium (Albuterol/ Ipratropium) 3 ml Q4HRT HHN 02/06/18 11:00 02/11/18 10:59 02/07/18 11:08 Ascorbic Acid (Vitamin C) 500 mg DAILY ORAL 02/06/18 09:00 03/08/18 08:59 Aspirin (ASA) 81 mg DAILY ORAL 02/07/18 09:00 03/09/18 08:59 Bisacodyl (Dulcolax) 10 mg DAILYPRN PRN RECTAL Constipation 02/06/18 08:15 03/08/18 08:14 Calcium Carbonate (Os-Rivas) 1,250 mg BIDPC ORAL 02/06/18 09:00 03/08/18 08:59 Carbidopa/Levodopa (Sinemet 25/100) 1 tab Q4HR ORAL 02/06/18 09:00 03/08/18 08:59 02/07/18 12:04 Carvedilol (Coreg) 3.125 mg EVERY 12 HOURS ORAL 02/06/18 22:32 03/08/18 22:31 Clonidine HCl (Catapres Tab) 0.1 mg Q4H PRN ORAL SBP greater than 160 02/06/18 09:00 03/08/18 08:59 Dextrose 1,000 ml @ 75 mls/hr [id number] IV 02/07/18 09:00 03/09/18 08:59 02/07/18 09:01 Dextrose (Dextrose 50%) 25 ml STAT PRN IV Hypoglycemia 02/06/18 08:15 03/08/18 08:14 Dextrose (Dextrose 50%) 50 ml STAT PRN IV Hypoglycemia 02/06/18 08:15 03/08/18 08:14 Digoxin (Lanoxin) 0.125 mg DAILY ORAL 02/06/18 09:00 03/08/18 08:59 Docusate Sodium (Colace) 100 mg TWICE A DAY ORAL 02/06/18 09:00 03/08/18 08:59 Dorzolamide HCl (Trusopt) 1 drop TWICE A DAY RIGHT EYE 02/06/18 10:00 03/08/18 09:59 02/07/18 08:42 Ferrous Sulfate (Feosol) 325 mg THREE TIMES A DAY ORAL 02/06/18 09:00 03/08/18 08:59 02/07/18 12:04 Finasteride (Proscar) 5 mg DAILY ORAL 02/06/18 09:00 03/08/18 08:59 Folic Acid (Folate) 1 mg DAILY ORAL 02/06/18 09:00 03/08/18 08:59 Insulin Aspart (NovoLOG) BEFORE MEALS AND HS SUBQ 02/06/18 11:30 03/08/18 11:29 02/07/18 12:05 Insulin Detemir (Levemir) 8 units BID SUBQ 02/06/18 09:00 03/08/18 08:59 02/07/18 08:54 Latanoprost (Xalatan) 1 drop BEDTIME BOTH EYES 02/06/18 21:00 03/08/18 20:59 02/06/18 20:49 Magnesium Hydroxide (Mom) 30 ml DAILY ORAL 02/06/18 09:00 03/08/18 08:59 Memantine (Namenda) 10 mg TWICE A DAY ORAL 02/06/18 09:00 03/08/18 08:59 Multivitamins (Multivitamins) 1 tab DAILY ORAL 02/06/18 09:00 03/08/18 08:59 Pantoprazole (Protonix) 40 mg DAILY ORAL 02/06/18 09:00 03/08/18 08:59 Piperacillin Sod/ Tazobactam Sod 3.375 gm/Dextrose 110 ml @ 27.5 mls/hr EVERY 8 HOURS IVPB 02/06/18 14:00 02/11/18 13:59 02/07/18 13:40 Sennosides (Senokot) 1 tab BEDTIME ORAL 02/06/18 21:00 03/08/18 20:59 Tamsulosin HCl (Flomax) 0.4 mg BEDTIME ORAL 02/06/18 21:00 03/08/18 20:59 Vitamin B Complex (Vitamin B Complex) 1 tab BEDTIME ORAL 02/06/18 21:00 03/08/18 20:59 Vitamin D (Vitamin D) 1,000 intlu DAILY ORAL 02/06/18 09:00 03/08/18 08:59 Warfarin Sodium (Coumadin per pharmacy) 1 ea DAILY PRN MISC Per rx protocol 02/06/18 08:30 03/08/18 08:29 Warfarin Sodium (Coumadin) 3 mg COUMADIN ONCE ORAL 02/07/18 17:00 02/07/18 17:01 PETE HERNANDEZ Feb 07, 2018 13:53
[2018-02-07 16:21] VITALS: BP 118/66
[2018-02-07] MEDS ORDERED: Warfarin Sodium 3mg ORAL ONE (17:00)
[2018-02-07 20:00] VITALS: BP 102/65
[2018-02-07] MEDS: Sennosides 8.6mg ORAL SCH (20:42)
[2018-02-07] MEDS: Tamsulosin 0.4mg cap ORAL SCH (20:42)
[2018-02-07] MEDS: Vitamin B Complex Tab ORAL SCH (20:43)
[2018-02-07] MEDS: Latanoprost 0.005% Opth 2.5ml Soln BOTH EYES SCH (20:43)
[2018-02-07] MEDS ORDERED: NS 275ml ONE (21:04)
[2018-02-07] MEDS ORDERED: Tubing IV Secondary IV ONE (21:04)
[2018-02-08] VITALS: BP 116/65
[2018-02-08] MEDS: Levodopa/Carbidopa 25/100 tab ORAL SCH ×6 (00:46→21:00)
[2018-02-08] MEDS: Albuterol/Ipratropium 3ml neb HHN SCH ×6 (03:44→22:58)
[2018-02-08 04:00] VITALS: BP 118/73
--- NOTE | 2018-02-08 05:15 | Progress Note ---
DATE: 02/07/2018 CARDIOLOGY PROGRESS NOTE SUBJECTIVE: The patient without new complaints. Shortness of breath has improved. He is off BiPAP. The patient remains on hypotonic IV fluids with diuretics on hold. PHYSICAL EXAMINATION: VITAL SIGNS: Blood pressure 100/65, pulse 75, respirations 20, and afebrile. LUNGS: Bilateral breath sounds. Few rhonchi. HEART: Regular rhythm and rate. Normal S1, S2. A 1/6 systolic murmur at apex. ABDOMEN: Soft. EXTREMITIES: No edema. LABORATORY DATA: White count 5.3, hemoglobin 10.3. Sodium 150, potassium 4, bicarbonate 34, BUN 55, and creatinine 1.9. Albumin 3.0. LDL cholesterol 146. IMPRESSION: 1. Dehydration. 2. Hypernatremia. 3. Acute on chronic kidney injury. 4. Acute myocardial ischemia, possible [id number] myocardial infarction. 5. Acute on chronic systolic and diastolic congestive heart failure. 6. Mild protein-calorie malnutrition. 7. Cardiac defibrillator. 8. Paroxysmal atrial fibrillation. 9. Dyslipidemia. 10. Diabetes mellitus type 2. PLAN: 1. Continue free water replacement. 2. Hold diuretics. 3. Antimicrobials per Infectious Disease hospice consultant. 4. Add statin therapy. INR goal 2 to 3. 5. Outpatient defibrillator interrogation. 6. Check digoxin level. 7. Titrate beta-kristin. 8. Warfarin to INR 2-3 for cardioembolic prophylaxis. Charlie Ashraf M.D. DR: GILDARDO JOB#: [id number] CC: ZAKIA
[2018-02-08 05:49] LABS: BASOPHILS % (AUTO) 0.5 % (0.0-2.0); EOSINOPHILS % (AUTO) 1.4 % (0.0-3.0); HEMATOCRIT 30.5 % (42.0-52.0); HEMOGLOBIN 10.1 G/DL (14.2-18.0); LYMPHOCYTES % (AUTO) 26.1 % (20.0-45.0); MEAN CORPUSCULAR VOLUME 102 FL (80-99); MONOCYTES % (AUTO) 17.8 % (1.0-10.0); NEUTROPHILS % (AUTO) 54.2 % (45.0-75.0); PLATELET COUNT 143 K/UL (150-450); RED BLOOD COUNT 2.99 M/UL (4.70-6.10); RED CELL DISTRIBUTION WIDTH 14.6 % (11.6-14.8); WHITE BLOOD COUNT 5.4 K/UL (4.8-10.8)
[2018-02-08 06:02] LABS: INR 1.4 (0.9-1.1)
[2018-02-08] MEDS: Piperacillin/Tazobactam 3.375 GM in D5W 110 ML IVPB SCH ×3 (06:09→21:01)
[2018-02-08 06:21] LABS: ALANINE AMINOTRANSFERASE 13 U/L (12-78); ALBUMIN 2.8 G/DL (3.4-5.0); ALBUMIN/GLOBULIN RATIO 0.7 (1.0-2.7); ALKALINE PHOSPHATASE 76 U/L (46-116); ANION GAP 10 mmol/L (5-15); ASPARTATE AMINO TRANSFERASE 22 U/L (15-37); BILIRUBIN,TOTAL 0.6 MG/DL (0.2-1.0); BLOOD UREA NITROGEN 52 mg/dL (7-18); CALCIUM 9.3 MG/DL (8.5-10.1); CARBON DIOXIDE 33 MMOL/L (21-32); CHLORIDE 102 MMOL/L (98-107); CREATININE 1.7 MG/DL (0.55-1.30); POTASSIUM 3.2 MMOL/L (3.5-5.1); SODIUM 145 MMOL/L (136-145)
[2018-02-08] MEDS: NovoLOG Insulin Flexpen SUBQ SCH ×4 (06:25→21:11)
--- NOTE | 2018-02-08 08:29 | General Progress Note ---
Assessment/Plan Problem List: (1) Anemia ICD Codes: D64.9 - Anemia, unspecified SNOMED: 231742629 Qualifiers: Qualified Codes: D64.9 - Anemia, unspecified (2) CKD (chronic kidney disease) ICD Codes: N18.9 - Chronic kidney disease, unspecified SNOMED: 123645036 Qualifiers: Qualified Codes: N18.9 - Chronic kidney disease, unspecified (3) Toxic metabolic encephalopathy ICD Codes: G92 - Toxic encephalopathy SNOMED: 094367460 (4) CHF (congestive heart failure) ICD Codes: I50.9 - Heart failure, unspecified SNOMED: 63472697 Qualifiers: Qualified Codes: I50.9 - Heart failure, unspecified (5) UTI (urinary tract infection) ICD Codes: N39.0 - Urinary tract infection, site not specified SNOMED: 22349961 Qualifiers: Qualified Codes: N30.00 - Acute cystitis without hematuria Status: stable, progressing Assessment/Plan iv abx swallow eval/therapy follow up cultures hypotonic fluids replace lytes prn diuresis repeat abg Subjective ROS Limited/Unobtainable: Yes Constitutional: Reports: malaise, weakness HEENT: Reports: no symptoms Cardiovascular: Reports: edema Respiratory: Reports: SOB with excertion Gastrointestinal/Abdominal: Reports: difficulty swallowing Genitourinary: Reports: no symptoms Neurologic/Psychiatric: Reports: pre-existing deficit Endocrine: Reports: no symptoms Hematologic/Lymphatic: Reports: no symptoms Allergies: Coded Allergies: APIXABAN (Unverified Allergy, Unknown, 02/06/18) BUMETANIDE (Unverified Allergy, Unknown, 02/06/18) SPIRONOLACTONE (Unverified Allergy, Unknown, 02/06/18) All Systems: reviewed and negative except above Subjective no events. w/o complaints. off bipap. feels better. labs reviewed. cards/id noted. difficulty swallowing. POA does not want gt/ngt. pt is more withdrawn than usual. awake and alert Objective Last 24 Hour Vital Signs Date Time Temp Pulse Resp B/P (MAP) Pulse Ox O2 Delivery O2 Flow Rate FiO2 02/08/18 07:19 76 16 99 Nasal Cannula 2.0 28 02/08/18 07:12 Nasal Cannula 2.0 28 02/08/18 07:12 98 Nasal Cannula 2.0 28 02/08/18 07:12 74 16 98 Nasal Cannula 2.0 28 02/08/18 04:00 78 02/08/18 04:00 96.8 75 20 118/73 95 Nasal Cannula 2.0 96.8 02/08/18 03:55 72 18 100 Nasal Cannula 2.0 28 02/08/18 03:44 78 16 94 Nasal Cannula 2.0 28 02/08/18 00:00 97.7 76 20 116/65 100 Nasal Cannula 2.0 97.7 02/08/18 00:00 76 02/07/18 23:22 78 18 100 Nasal Cannula 2.0 28 02/07/18 23:21 71 16 100 Nasal Cannula 2.0 28 02/07/18 20:00 75 02/07/18 20:00 98.1 75 22 102/65 100 Nasal Cannula 2.0 98.1 02/07/18 19:00 75 16 100 Nasal Cannula 2.0 28 02/07/18 18:48 100 Nasal Cannula 2.0 28 02/07/18 18:48 Nasal Cannula 2.0 28 02/07/18 18:48 75 16 100 Nasal Cannula 2.0 28 02/07/18 16:21 99.0 75 24 118/66 99 Nasal Cannula 2.0 99.0 02/07/18 15:54 78 16 100 Nasal Cannula 2.0 28 02/07/18 15:40 76 22 100 Nasal Cannula 2.0 28 02/07/18 15:22 78 02/07/18 12:00 98.4 76 22 123/70 98 Nasal Cannula 2.0 98.4 02/07/18 11:44 75 02/07/18 11:12 83 16 98 Nasal Cannula 2.0 28 02/07/18 11:00 69 20 98 Nasal Cannula 3.0 32 Intake and Output 02/07/18 02/08/18 19:00 07:00 Intake Total 1242.5 ml 1235.0 ml Output Total 400 ml 250 ml Balance 842.5 ml 985.0 ml IV Total 1242.5 ml 1235.0 ml Output Urine Total 400 ml 250 ml Laboratory Tests 02/08/18 04:16: White Blood Count 5.4, Red Blood Count 2.99L, Hemoglobin 10.1L, Hematocrit 30.5L , Mean Corpuscular Volume 102H, Mean Corpuscular Hemoglobin 34.0H, Mean Corpuscular Hemoglobin Concent 33.2, Red Cell Distribution Width 14.6, Platelet Count 143L, Mean Platelet Volume 7.1, Neutrophils (%) (Auto) 54.2, Lymphocytes ( %) (Auto) 26.1, Monocytes (%) (Auto) 17.8H, Eosinophils (%) (Auto) 1.4, Basophils (%) (Auto) 0.5, Prothrombin Time 15.2H, Prothromb Time International Ratio 1.4H, Sodium Level 145, Potassium Level 3.2L, Chloride Level 102, Carbon Dioxide Level 33H, Anion Gap 10, Blood Urea Nitrogen 52H, Creatinine 1.7H, Estimat Glomerular Filtration Rate , Glucose Level 222H, Calcium Level 9.3, Total Bilirubin 0.6, Aspartate Amino Transf (AST/SGOT) 22, Alanine Aminotransferase (ALT/SGPT) 13, Alkaline Phosphatase 76, Troponin I 0.076H, Pro- B-Type Natriuretic Peptide 6228H, Total Protein 7.0, Albumin 2.8L, Globulin 4.2 , Albumin/Globulin Ratio 0.7L, Digoxin Level 0.8 Height (Feet): 6 Height (Inches): 0.00 Weight (Pounds): 156 Objective General Appearance: WD/WN, alert Neck: supple Cardiovascular: regular rhythm Respiratory/Chest: chest wall non-tender, lungs clear, normal breath sounds, no respiratory distress Abdomen: normal bowel sounds, non tender, soft, no organomegaly Edema: no edema noted Arm (L), no edema noted Arm (R), no edema noted Leg (L), no edema noted Leg (R), no edema noted Pedal (L), no edema noted Pedal (R), no edema noted Generalized Sai Berry MD Feb 08, 2018 08:29
[2018-02-08 08:39] VITALS: BP 116/62
[2018-02-08] MEDS: Levemir Flexpen SUBQ SCH ×2 (08:57→18:18)
[2018-02-08] MEDS: Dorzolamide 2% 10ml Btl RIGHT EYE SCH ×2 (08:58→17:17)
[2018-02-08] MEDS: Digoxin 0.125mg tab ORAL SCH (09:00)
[2018-02-08] MEDS: Aspirin Baby 81mg ORAL SCH (09:00)
[2018-02-08] MEDS: Milk of Magnesia 30ml Ud ORAL SCH (09:00)
[2018-02-08] MEDS: Ascorbic Acid 500mg tab ORAL SCH (09:00)
[2018-02-08] MEDS: Memantine 10mg tab ORAL SCH ×2 (09:00→18:00)
[2018-02-08] MEDS: Docusate 100mg cap ORAL SCH ×2 (09:00→18:00)
[2018-02-08] MEDS: Carvedilol 6.25mg Tab ORAL SCH ×2 (09:00→20:59)
[2018-02-08] MEDS: Vitamin D 1000 IU Tab ORAL SCH (09:00)
--- NOTE | 2018-02-08 09:21 | Infectious Diseases Prog Note ---
Assessment/Plan Assessment/Plan A 1. UTI 2. renal failure improving 3. COPD 4. CHF 5. diabetes 6. hypertension 7. Bacteremia 8.MRSA colonization P 1. continue Zosyn & Zyvox 2. will follow up cultures Subjective ROS Limited/Unobtainable: Yes Allergies: Coded Allergies: APIXABAN (Unverified Allergy, Unknown, 02/06/18) BUMETANIDE (Unverified Allergy, Unknown, 02/06/18) SPIRONOLACTONE (Unverified Allergy, Unknown, 02/06/18) Objective Vital Signs Last 24 Hour Vital Signs Date Time Temp Pulse Resp B/P (MAP) Pulse Ox O2 Delivery O2 Flow Rate FiO2 02/08/18 08:39 98.6 79 19 116/62 97 Nasal Cannula 2.0 98.6 02/08/18 07:43 79 02/08/18 07:19 76 16 99 Nasal Cannula 2.0 28 02/08/18 07:12 Nasal Cannula 2.0 28 02/08/18 07:12 98 Nasal Cannula 2.0 28 02/08/18 07:12 74 16 98 Nasal Cannula 2.0 28 02/08/18 04:00 78 02/08/18 04:00 96.8 75 20 118/73 95 Nasal Cannula 2.0 96.8 02/08/18 03:55 72 18 100 Nasal Cannula 2.0 28 02/08/18 03:44 78 16 94 Nasal Cannula 2.0 28 02/08/18 00:00 97.7 76 20 116/65 100 Nasal Cannula 2.0 97.7 02/08/18 00:00 76 02/07/18 23:22 78 18 100 Nasal Cannula 2.0 28 02/07/18 23:21 71 16 100 Nasal Cannula 2.0 28 02/07/18 20:00 75 02/07/18 20:00 98.1 75 22 102/65 100 Nasal Cannula 2.0 98.1 02/07/18 19:00 75 16 100 Nasal Cannula 2.0 28 02/07/18 18:48 100 Nasal Cannula 2.0 28 02/07/18 18:48 Nasal Cannula 2.0 28 02/07/18 18:48 75 16 100 Nasal Cannula 2.0 28 02/07/18 16:21 99.0 75 24 118/66 99 Nasal Cannula 2.0 99.0 02/07/18 15:54 78 16 100 Nasal Cannula 2.0 28 02/07/18 15:40 76 22 100 Nasal Cannula 2.0 28 02/07/18 15:22 78 02/07/18 12:00 98.4 76 22 123/70 98 Nasal Cannula 2.0 98.4 02/07/18 11:44 75 02/07/18 11:12 83 16 98 Nasal Cannula 2.0 28 02/07/18 11:00 69 20 98 Nasal Cannula 3.0 32 Height (Feet): 6 Height (Inches): 0.00 Weight (Pounds): 156 General Appearance: no acute distress HEENT: other - dry mouth Respiratory/Chest: lungs clear Cardiovascular: normal rate Abdomen: soft, non tender Extremities: no edema Neurologic/Psychiatric: aphasia, other - opens eyes Microbiology Date/Time Source Procedure Growth Status 02/06/18 01:07 Blood Blood Culture - Preliminary Gram Positive Cocci Resulted 02/06/18 01:07 Blood Blood Culture - Preliminary Gram Positive Cocci Resulted 02/06/18 01:07 Nasal Nares MRSA Culture - Final Staphylococcus Aureus - Mrsa Complete 02/06/18 01:07 Urine,Clean Catch Urine Culture - Preliminary NO GROWTH AFTER 24 HOURS Resulted 02/06/18 01:07 Rectum VRE Culture - Preliminary Resulted 02/06/18 01:07 Rectum Pending Resulted Laboratory Tests Test 02/08/18 04:16 White Blood Count 5.4 K/UL (4.8-10.8) Red Blood Count 2.99 M/UL (4.70-6.10) L Hemoglobin 10.1 G/DL (14.2-18.0) L Hematocrit 30.5 % (42.0-52.0) L Mean Corpuscular Volume 102 FL (80-99) H Mean Corpuscular Hemoglobin 34.0 PG (27.0-31.0) H Mean Corpuscular Hemoglobin Concent 33.2 G/DL (32.0-36.0) Red Cell Distribution Width 14.6 % (11.6-14.8) Platelet Count 143 K/UL (150-450) L Mean Platelet Volume 7.1 FL (6.5-10.1) Neutrophils (%) (Auto) 54.2 % (45.0-75.0) Lymphocytes (%) (Auto) 26.1 % (20.0-45.0) Monocytes (%) (Auto) 17.8 % (1.0-10.0) H Eosinophils (%) (Auto) 1.4 % (0.0-3.0) Basophils (%) (Auto) 0.5 % (0.0-2.0) Prothrombin Time 15.2 SEC (9.30-11.50) H Prothromb Time International Ratio 1.4 (0.9-1.1) H Sodium Level 145 MMOL/L (136-145) Potassium Level 3.2 MMOL/L (3.5-5.1) L Chloride Level 102 MMOL/L (98-107) Carbon Dioxide Level 33 MMOL/L (21-32) H Anion Gap 10 mmol/L (5-15) Blood Urea Nitrogen 52 mg/dL (7-18) H Creatinine 1.7 MG/DL (0.55-1.30) H Estimat Glomerular Filtration Rate mL/min (>60) Glucose Level 222 MG/DL (74-106) H Calcium Level 9.3 MG/DL (8.5-10.1) Total Bilirubin 0.6 MG/DL (0.2-1.0) Aspartate Amino Transf (AST/SGOT) 22 U/L (15-37) Alanine Aminotransferase (ALT/SGPT) 13 U/L (12-78) Alkaline Phosphatase 76 U/L (46-116) Troponin I 0.076 ng/mL (0.000-0.056) Pro-B-Type Natriuretic Peptide 6228 pg/mL (0-125) H Total Protein 7.0 G/DL (6.4-8.2) Albumin 2.8 G/DL (3.4-5.0) L Globulin 4.2 g/dL Albumin/Globulin Ratio 0.7 (1.0-2.7) L Digoxin Level 0.8 NG/ML (0.5-2.0) Current Medications Medications (Trade) Dose Ordered Sig/Karolina Route PRN Reason Start Time Stop Time Status Last Admin Dose Admin Acetaminophen (Tylenol) 650 mg Q6H PRN ORAL Mild Pain (Pain Scale 1-3) 02/06/18 08:15 03/08/18 08:14 Albuterol/ Ipratropium (Albuterol/ Ipratropium) 3 ml Q4HRT HHN 6/25/18 11:00 02/11/18 10:59 02/08/18 07:13 Ascorbic Acid (Vitamin C) 500 mg DAILY ORAL 02/06/18 09:00 03/08/18 08:59 Aspirin (ASA) 81 mg DAILY ORAL 02/07/18 09:00 03/09/18 08:59 Atorvastatin Calcium (Lipitor) 10 mg BEDTIME ORAL 02/08/18 21:00 03/10/18 20:59 Bisacodyl (Dulcolax) 10 mg DAILYPRN PRN RECTAL Constipation 02/06/18 08:15 03/08/18 08:14 Calcium Carbonate (Os-Rivas) 1,250 mg BIDPC ORAL 02/06/18 09:00 03/08/18 08:59 Carbidopa/Levodopa (Sinemet 25/) 1 tab Q4HR ORAL 02/06/18 09:00 03/08/18 08:59 02/07/18 12:04 Carvedilol (Coreg) 6.25 mg EVERY 12 HOURS ORAL 02/08/18 09:00 03/10/18 08:59 Clonidine HCl (Catapres Tab) 0.1 mg Q4H PRN ORAL SBP greater than 160 02/06/18 09:00 03/08/18 08:59 Dextrose 1,000 ml @ 75 mls/hr [id number] IV 02/07/18 09:00 03/09/18 08:59 02/07/18 21:57 Dextrose (Dextrose 50%) 25 ml STAT PRN IV Hypoglycemia 02/06/18 08:15 03/08/18 08:14 Dextrose (Dextrose 50%) 50 ml STAT PRN IV Hypoglycemia 02/06/18 08:15 03/08/18 08:14 Digoxin (Lanoxin) 0.125 mg DAILY ORAL 02/06/18 09:00 03/08/18 08:59 Docusate Sodium (Colace) 100 mg TWICE A DAY ORAL 02/06/18 09:00 03/08/18 08:59 Dorzolamide HCl (Trusopt) 1 drop TWICE A DAY RIGHT EYE 02/06/18 10:00 03/08/18 09:59 02/08/18 08:58 Ferrous Sulfate (Feosol) 325 mg THREE TIMES A DAY ORAL 6/25/18 09:00 03/08/18 08:59 02/07/18 12:04 Finasteride (Proscar) 5 mg DAILY ORAL 02/06/18 09:00 03/08/18 08:59 Folic Acid (Folate) 1 mg DAILY ORAL 02/06/18 09:00 03/08/18 08:59 Insulin Aspart (NovoLOG) BEFORE MEALS AND HS SUBQ 02/06/18 11:30 03/08/18 11:29 02/08/18 06:25 Insulin Detemir (Levemir) 8 units BID SUBQ 02/06/18 09:00 03/08/18 08:59 02/08/18 08:57 Latanoprost (Xalatan) 1 drop BEDTIME BOTH EYES 02/06/18 21:00 03/08/18 20:59 02/07/18 20:43 Linezolid 300 ml @ 300 mls/hr Q12HR@0400,1600 IVPB 02/07/18 16:00 02/14/18 15:59 02/08/18 04:17 Magnesium Hydroxide (Mom) 30 ml DAILY ORAL 02/06/18 09:00 03/08/18 08:59 Memantine (Namenda) 10 mg TWICE A DAY ORAL 02/06/18 09:00 03/08/18 08:59 Multivitamins (Multivitamins) 1 tab DAILY ORAL 02/06/18 09:00 03/08/18 08:59 Pantoprazole (Protonix) 40 mg DAILY ORAL 02/06/18 09:00 03/08/18 08:59 Piperacillin Sod/ Tazobactam Sod 3.375 gm/Dextrose 110 ml @ 27.5 mls/hr EVERY 8 HOURS IVPB 02/06/18 14:00 02/11/18 13:59 02/08/18 06:09 Potassium Chloride 100 ml @ 100 mls/hr Q1HR IVPB 02/08/18 09:00 02/08/18 11:59 02/08/18 09:02 Sennosides (Senokot) 1 tab BEDTIME ORAL 02/06/18 21:00 03/08/18 20:59 Tamsulosin HCl (Flomax) 0.4 mg BEDTIME ORAL 02/06/18 21:00 03/08/18 20:59 Vitamin B Complex (Vitamin B Complex) 1 tab BEDTIME ORAL 02/06/18 21:00 03/08/18 20:59 Vitamin D (Vitamin D) 1,000 intlu DAILY ORAL 02/06/18 09:00 03/08/18 08:59 Warfarin Sodium (Coumadin per pharmacy) 1 ea DAILY PRN MISC Per rx protocol 02/06/18 08:30 03/08/18 08:29 Pavan Delacruz MD Feb 08, 2018 09:21
[2018-02-08 12:12] VITALS: BP 101/63
[2018-02-08 15:52] VITALS: BP 115/69
[2018-02-08] MEDS ORDERED: Warfarin Sodium 3mg ORAL ONE (17:00)
--- NOTE | 2018-02-08 17:20 | Urology Progress Note ---
Assessment/Plan Assessment/Plan 1. Pyuria and probable urinary tract infection. 2. Proteinuria. 3. Benign prostatic hypertrophy history. 4. Urinary retention. 5. Neurogenic bladder. 6. Chronic renal insufficiency. camarena indwelling abx as ordered flomax and proscar voiding trial? cysto later Subjective Allergies: Coded Allergies: APIXABAN (Unverified Allergy, Unknown, 02/06/18) BUMETANIDE (Unverified Allergy, Unknown, 02/06/18) SPIRONOLACTONE (Unverified Allergy, Unknown, 02/06/18) Subjective non-verbal Objective Last 24 Hour Vital Signs Date Time Temp Pulse Resp B/P (MAP) Pulse Ox O2 Delivery O2 Flow Rate FiO2 02/08/18 16:00 78 02/08/18 15:52 98.4 76 19 115/69 99 Nasal Cannula 2.0 98.4 02/08/18 15:22 77 16 100 Nasal Cannula 2.0 28 02/08/18 15:17 76 16 100 Nasal Cannula 2.0 28 02/08/18 12:12 97.8 75 18 101/63 100 Nasal Cannula 2.0 97.8 02/08/18 12:05 77 02/08/18 11:27 78 16 100 Nasal Cannula 2.0 28 02/08/18 11:18 78 16 100 Nasal Cannula 2.0 28 02/08/18 09:00 79 116/62 02/08/18 09:00 79 02/08/18 08:39 98.6 79 19 116/62 97 Nasal Cannula 2.0 98.6 02/08/18 07:43 79 02/08/18 07:19 76 16 99 Nasal Cannula 2.0 28 02/08/18 07:12 Nasal Cannula 2.0 28 02/08/18 07:12 98 Nasal Cannula 2.0 28 02/08/18 07:12 74 16 98 Nasal Cannula 2.0 28 02/08/18 04:00 78 02/08/18 04:00 96.8 75 20 118/73 95 Nasal Cannula 2.0 96.8 02/08/18 03:55 72 18 100 Nasal Cannula 2.0 28 02/08/18 03:44 78 16 94 Nasal Cannula 2.0 28 02/08/18 00:00 97.7 76 20 116/65 100 Nasal Cannula 2.0 97.7 02/08/18 00:00 76 02/07/18 23:22 78 18 100 Nasal Cannula 2.0 28 02/07/18 23:21 71 16 100 Nasal Cannula 2.0 28 02/07/18 20:00 75 02/07/18 20:00 98.1 75 22 102/65 100 Nasal Cannula 2.0 98.1 02/07/18 19:00 75 16 100 Nasal Cannula 2.0 28 02/07/18 18:48 100 Nasal Cannula 2.0 28 02/07/18 18:48 Nasal Cannula 2.0 28 02/07/18 18:48 75 16 100 Nasal Cannula 2.0 28 Intake and Output 02/07/18 02/08/18 19:00 07:00 Intake Total 1242.5 ml 1235.0 ml Output Total 400 ml 250 ml Balance 842.5 ml 985.0 ml IV Total 1242.5 ml 1235.0 ml Output Urine Total 400 ml 250 ml Microbiology Date/Time Source Procedure Growth Status 02/06/18 01:07 Blood Blood Culture - Preliminary Gram Positive Cocci Resulted 02/06/18 01:07 Nasal Nares MRSA Culture - Final Staphylococcus Aureus - Mrsa Complete 02/06/18 01:07 Urine,Clean Catch Urine Culture - Final NO GROWTH AFTER 48 HOURS Complete 02/06/18 01:07 Rectum VRE Culture - Final Enterococcus Faecalis - Vre Resulted 02/06/18 01:07 Rectum Pending Resulted Current Medications Medications (Trade) Dose Ordered Sig/Karolina Route PRN Reason Start Time Stop Time Status Last Admin Dose Admin Acetaminophen (Tylenol) 650 mg Q6H PRN ORAL Mild Pain (Pain Scale 1-3) 02/06/18 08:15 03/08/18 08:14 Albuterol/ Ipratropium (Albuterol/ Ipratropium) 3 ml Q4HRT HHN 02/06/18 11:00 02/11/18 10:59 02/08/18 15:17 Ascorbic Acid (Vitamin C) 500 mg DAILY ORAL 02/06/18 09:00 03/08/18 08:59 Aspirin (ASA) 81 mg DAILY ORAL 02/07/18 09:00 03/09/18 08:59 Atorvastatin Calcium (Lipitor) 10 mg BEDTIME ORAL 02/08/18 21:00 03/10/18 20:59 Bisacodyl (Dulcolax) 10 mg DAILYPRN PRN RECTAL Constipation 02/06/18 08:15 03/08/18 08:14 Calcium Carbonate (Os-Rivas) 1,250 mg BIDPC ORAL 02/06/18 09:00 03/08/18 08:59 Carbidopa/Levodopa (Sinemet 25/100) 1 tab Q4HR ORAL 02/06/18 09:00 03/08/18 08:59 02/07/18 12:04 Carvedilol (Coreg) 6.25 mg EVERY 12 HOURS ORAL 02/08/18 09:00 03/10/18 08:59 Clonidine HCl (Catapres Tab) 0.1 mg Q4H PRN ORAL SBP greater than 160 02/06/18 09:00 03/08/18 08:59 Dextrose 1,000 ml @ 75 mls/hr [id number] IV 02/07/18 09:00 03/09/18 08:59 02/08/18 12:31 Dextrose (Dextrose 50%) 25 ml STAT PRN IV Hypoglycemia 02/06/18 08:15 03/08/18 08:14 Dextrose (Dextrose 50%) 50 ml STAT PRN IV Hypoglycemia 02/06/18 08:15 03/08/18 08:14 Digoxin (Lanoxin) 0.125 mg DAILY ORAL 02/06/18 09:00 03/08/18 08:59 Docusate Sodium (Colace) 100 mg TWICE A DAY ORAL 02/06/18 09:00 03/08/18 08:59 Dorzolamide HCl (Trusopt) 1 drop TWICE A DAY RIGHT EYE 02/06/18 10:00 03/08/18 09:59 02/08/18 08:58 Ferrous Sulfate (Feosol) 325 mg THREE TIMES A DAY ORAL 02/06/18 09:00 03/08/18 08:59 02/07/18 12:04 Finasteride (Proscar) 5 mg DAILY ORAL 02/06/18 09:00 03/08/18 08:59 Folic Acid (Folate) 1 mg DAILY ORAL 02/06/18 09:00 03/08/18 08:59 Insulin Aspart (NovoLOG) BEFORE MEALS AND HS SUBQ 02/06/18 11:30 03/08/18 11:29 02/08/18 12:31 Insulin Detemir (Levemir) 8 units BID SUBQ 02/06/18 09:00 03/08/18 08:59 02/08/18 08:57 Latanoprost (Xalatan) 1 drop BEDTIME BOTH EYES 02/06/18 21:00 03/08/18 20:59 02/07/18 20:43 Linezolid 300 ml @ 300 mls/hr Q12HR@0400,1600 IVPB 02/07/18 16:00 02/14/18 15:59 02/08/18 15:32 Magnesium Hydroxide (Mom) 30 ml DAILY ORAL 02/06/18 09:00 03/08/18 08:59 Memantine (Namenda) 10 mg TWICE A DAY ORAL 02/06/18 09:00 03/08/18 08:59 Multivitamins (Multivitamins) 1 tab DAILY ORAL 02/06/18 09:00 03/08/18 08:59 Pantoprazole (Protonix) 40 mg DAILY ORAL 02/06/18 09:00 03/08/18 08:59 Piperacillin Sod/ Tazobactam Sod 3.375 gm/Dextrose 110 ml @ 27.5 mls/hr EVERY 8 HOURS IVPB 02/06/18 14:00 02/11/18 13:59 02/08/18 14:31 Sennosides (Senokot) 1 tab BEDTIME ORAL 02/06/18 21:00 03/08/18 20:59 Tamsulosin HCl (Flomax) 0.4 mg BEDTIME ORAL 02/06/18 21:00 03/08/18 20:59 Vitamin B Complex (Vitamin B Complex) 1 tab BEDTIME ORAL 02/06/18 21:00 03/08/18 20:59 Vitamin D (Vitamin D) 1,000 intlu DAILY ORAL 02/06/18 09:00 03/08/18 08:59 Warfarin Sodium (Coumadin per pharmacy) 1 ea DAILY PRN MISC Per rx protocol 02/06/18 08:30 03/08/18 08:29 Laboratory Tests 02/08/18 04:16: White Blood Count 5.4, Red Blood Count 2.99L, Hemoglobin 10.1L, Hematocrit 30.5L , Mean Corpuscular Volume 102H, Mean Corpuscular Hemoglobin 34.0H, Mean Corpuscular Hemoglobin Concent 33.2, Red Cell Distribution Width 14.6, Platelet Count 143L, Mean Platelet Volume 7.1, Neutrophils (%) (Auto) 54.2, Lymphocytes ( %) (Auto) 26.1, Monocytes (%) (Auto) 17.8H, Eosinophils (%) (Auto) 1.4, Basophils (%) (Auto) 0.5, Prothrombin Time 15.2H, Prothromb Time International Ratio 1.4H, Sodium Level 145, Potassium Level 3.2L, Chloride Level 102, Carbon Dioxide Level 33H, Anion Gap 10, Blood Urea Nitrogen 52H, Creatinine 1.7H, Estimat Glomerular Filtration Rate , Glucose Level 222H, Calcium Level 9.3, Total Bilirubin 0.6, Aspartate Amino Transf (AST/SGOT) 22, Alanine Aminotransferase (ALT/SGPT) 13, Alkaline Phosphatase 76, Troponin I 0.076H, Pro- B-Type Natriuretic Peptide 6228H, Total Protein 7.0, Albumin 2.8L, Globulin 4.2 , Albumin/Globulin Ratio 0.7L, Digoxin Level 0.8 02/08/18 11:20: Arterial Blood pH 7.456H, Arterial Blood Partial Pressure CO2 45.6H, Arterial Blood Partial Pressure O2 97.2, Arterial Blood HCO3 31.4H, Arterial Blood Oxygen Saturation 97.6, Arterial Blood Base Excess 6.7, Laith Test Positive Height (Feet): 6 Height (Inches): 0.00 Weight (Pounds): 156 Objective exam stable, camarena indwelling, urine grossly yellow BAMSHAD,CARLOS Feb 08, 2018 17:20
[2018-02-08 20:00] VITALS: BP 102/55
[2018-02-08] MEDS: Latanoprost 0.005% Opth 2.5ml Soln BOTH EYES SCH (20:59)
[2018-02-08] MEDS: Vitamin B Complex Tab ORAL SCH (21:00)
[2018-02-08] MEDS: Sennosides 8.6mg ORAL SCH (21:00)
[2018-02-08] MEDS: Tamsulosin 0.4mg cap ORAL SCH (21:00)
[2018-02-09] VITALS: BP 110/55
[2018-02-09] MEDS: Levodopa/Carbidopa 25/100 tab ORAL SCH ×6 (00:12→21:00)
[2018-02-09] MEDS: Albuterol/Ipratropium 3ml neb HHN SCH ×6 (02:06→22:27)
[2018-02-09 04:00] VITALS: BP 93/52
--- NOTE | 2018-02-09 04:46 | Progress Note ---
DATE: 02/08/2018 CARDIOLOGY PROGRESS NOTE SUBJECTIVE: The patient is off BiPAP. He feels better. No new complaints. He continues to have some episodes of dysphagia. Power of title attorney has refused to have any artificial source of feeding and nutrition. The patient is on hypotonic IV fluids. Monitored rhythm is paced. OBJECTIVE: VITAL SIGNS: Blood pressure 102/55, pulse 75, respirations 20, and afebrile. LUNGS: Coarse breath sounds. Scattered rhonchi. No wheezing. HEART: Regular rhythm and rate. Normal S1, paradoxically split S2. ABDOMEN: Soft, nontender. EXTREMITIES: With trace dependent edema. LABORATORY DATA: White count 5.4, hemoglobin 10.1. Sodium 145, potassium 3.2, bicarbonate 33, BUN 52, and creatinine 1.7. Troponin is 0.076. Pro-natriuretic peptide . Albumin 3.8. ABG today, 7.45, 45, 97. IMPRESSION: 1. Slow progress, improved overall, still high risk due to advanced cardiopulmonary disease. 2. Acute on chronic diastolic and systolic congestive heart failure. 3. Chronic obstructive pulmonary disease with exacerbation. 4. Anemia. 5. Dehydration. 6. Hypernatremia. 7. Hypokalemia. 8. Acute myocardial ischemia. 9. Moderate protein-calorie malnutrition. 10. Hyperlipidemia. PLAN: 1. Antianginal and anti-platelet therapy ongoing. 2. Potassium replacement. 3. Check magnesium. 4. Free water replacement. 5. Protein supplement. 6. Antimicrobials. 7. Respiratory hygiene. Charlie Ashraf M.D. DR: GILDARDO JOB#: [id number] CC:
[2018-02-09] MEDS: Piperacillin/Tazobactam 3.375 GM in D5W 110 ML IVPB SCH ×3 (05:55→21:41)
[2018-02-09] MEDS: NovoLOG Insulin Flexpen SUBQ SCH ×4 (06:01→20:56)
[2018-02-09 06:38] LABS: INR 1.7 (0.9-1.1)
[2018-02-09 06:48] LABS: ALANINE AMINOTRANSFERASE 16 U/L (12-78); ALBUMIN 2.6 G/DL (3.4-5.0); ALBUMIN/GLOBULIN RATIO 0.6 (1.0-2.7); ALKALINE PHOSPHATASE 67 U/L (46-116); ANION GAP 9 mmol/L (5-15); ASPARTATE AMINO TRANSFERASE 27 U/L (15-37); BILIRUBIN,TOTAL 0.6 MG/DL (0.2-1.0); BLOOD UREA NITROGEN 41 mg/dL (7-18); CALCIUM 8.4 MG/DL (8.5-10.1); CARBON DIOXIDE 31 MMOL/L (21-32); CHLORIDE 97 MMOL/L (98-107); CREATININE 1.4 MG/DL (0.55-1.30); SODIUM 137 MMOL/L (136-145)
[2018-02-09 08:28] VITALS: BP 102/59
[2018-02-09] MEDS: Ascorbic Acid 500mg tab ORAL SCH (09:00)
[2018-02-09] MEDS: Docusate 100mg cap ORAL SCH ×2 (09:00→18:00)
[2018-02-09] MEDS: Memantine 10mg tab ORAL SCH ×2 (09:00→18:00)
[2018-02-09] MEDS: Milk of Magnesia 30ml Ud ORAL SCH (09:00)
[2018-02-09] MEDS: Carvedilol 6.25mg Tab ORAL SCH ×2 (09:00→21:00)
[2018-02-09] MEDS: Vitamin D 1000 IU Tab ORAL SCH (09:00)
[2018-02-09] MEDS: Aspirin Baby 81mg ORAL SCH (09:00)
[2018-02-09] MEDS: Digoxin 0.125mg tab ORAL SCH (09:00)
[2018-02-09] MEDS: Dorzolamide 2% 10ml Btl RIGHT EYE SCH ×2 (09:24→17:46)
[2018-02-09] MEDS: Levemir Flexpen SUBQ SCH ×2 (09:25→17:48)
--- NOTE | 2018-02-09 09:28 | Infectious Diseases Prog Note ---
Assessment/Plan Assessment/Plan A 1. UTI 2. renal failure improving 3. COPD 4. CHF 5. diabetes 6. 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 continue Zosyn , discontinue Zyvox 2. will follow up cultures Subjective ROS Limited/Unobtainable: Yes Constitutional: Reports: anorexia Neurologic: Reports: other - more alert Allergies: Coded Allergies: APIXABAN (Unverified Allergy, Unknown, 02/06/18) BUMETANIDE (Unverified Allergy, Unknown, 02/06/18) SPIRONOLACTONE (Unverified Allergy, Unknown, 02/06/18) Objective Vital Signs Last 24 Hour Vital Signs Date Time Temp Pulse Resp B/P (MAP) Pulse Ox O2 Delivery O2 Flow Rate FiO2 02/09/18 09:00 70 102/59 02/09/18 09:00 70 02/09/18 08:28 97.5 70 22 102/59 99 Nasal Cannula 2.0 97.5 02/09/18 08:12 71 20 97 Nasal Cannula 2.0 28 02/09/18 08:12 74 20 98 Nasal Cannula 2.0 28 02/09/18 08:12 Nasal Cannula 2.0 28 02/09/18 08:11 97 Nasal Cannula 2.0 28 02/09/18 08:00 75 02/09/18 04:00 89 02/09/18 04:00 97.2 77 20 93/52 100 Nasal Cannula 2.0 97.2 02/09/18 02:15 70 16 100 Nasal Cannula 2.0 02/09/18 02:07 67 20 98 Nasal Cannula 2.0 02/09/18 00:00 82 02/09/18 00:00 97.4 73 20 110/55 100 Nasal Cannula 2.0 97.4 02/08/18 23:09 78 16 99 Nasal Cannula 2.0 28 02/08/18 22:58 75 20 96 Nasal Cannula 2.0 28 02/08/18 20:59 75 102/55 02/08/18 20:00 97.4 75 20 102/55 100 Nasal Cannula 2.0 97.4 02/08/18 20:00 75 02/08/18 19:37 80 16 100 Nasal Cannula 2.0 28 02/08/18 19:24 Nasal Cannula 2.0 28 02/08/18 19:24 98 Nasal Cannula 2.0 28 02/08/18 19:24 78 16 98 Nasal Cannula 2.0 28 02/08/18 16:00 78 02/08/18 15:52 98.4 76 19 115/69 99 Nasal Cannula 2.0 98.4 02/08/18 15:22 77 16 100 Nasal Cannula 2.0 28 02/08/18 15:17 76 16 100 Nasal Cannula 2.0 28 02/08/18 12:12 97.8 75 18 101/63 100 Nasal Cannula 2.0 97.8 02/08/18 12:05 77 02/08/18 11:27 78 16 100 Nasal Cannula 2.0 28 02/08/18 11:18 78 16 100 Nasal Cannula 2.0 28 Height (Feet): 6 Height (Inches): 0.00 Weight (Pounds): 155 General Appearance: no acute distress HEENT: mucous membranes moist Respiratory/Chest: lungs clear Cardiovascular: normal rate Abdomen: soft, non tender Extremities: no edema Neurologic/Psychiatric: other - sleeping Laboratory Tests Test 02/08/18 11:20 02/09/18 03:54 Arterial Blood pH 7.456 (7.350-7.450) Arterial Blood Partial Pressure CO2 45.6 mmHg (35.0-45.0) H Arterial Blood Partial Pressure O2 97.2 mmHg (75.0-100.0) Arterial Blood HCO3 31.4 mmol/L (22.0-26.0) H Arterial Blood Oxygen Saturation 97.6 % (92.0-98.0) Arterial Blood Base Excess 6.7 Laith Test Positive Prothrombin Time 17.9 SEC (9.30-11.50) H Prothromb Time International Ratio 1.7 (0.9-1.1) H Sodium Level 137 MMOL/L (136-145) Potassium Level 3.0 MMOL/L (3.5-5.1) L Chloride Level 97 MMOL/L (98-107) L Carbon Dioxide Level 31 MMOL/L (21-32) Anion Gap 9 mmol/L (5-15) Blood Urea Nitrogen 41 mg/dL (7-18) H Creatinine 1.4 MG/DL (0.55-1.30) H Estimat Glomerular Filtration Rate mL/min (>60) Glucose Level 182 MG/DL (74-106) H Calcium Level 8.4 MG/DL (8.5-10.1) L Total Bilirubin 0.6 MG/DL (0.2-1.0) Aspartate Amino Transf (AST/SGOT) 27 U/L (15-37) Alanine Aminotransferase (ALT/SGPT) 16 U/L (12-78) Alkaline Phosphatase 67 U/L (46-116) Total Protein 6.6 G/DL (6.4-8.2) Albumin 2.6 G/DL (3.4-5.0) L Globulin 4.0 g/dL Albumin/Globulin Ratio 0.6 (1.0-2.7) L Current Medications Medications (Trade) Dose Ordered Sig/Karolina Route PRN Reason Start Time Stop Time Status Last Admin Dose Admin Acetaminophen (Tylenol) 650 mg Q6H PRN ORAL Mild Pain (Pain Scale 1-3) 02/06/18 08:15 03/08/18 08:14 Albuterol/ Ipratropium (Albuterol/ Ipratropium) 3 ml Q4HRT HHN 02/06/18 11:00 02/11/18 10:59 02/09/18 08:00 Ascorbic Acid (Vitamin C) 500 mg DAILY ORAL 02/06/18 09:00 03/08/18 08:59 Aspirin (ASA) 81 mg DAILY ORAL 02/07/18 09:00 03/09/18 08:59 Atorvastatin Calcium (Lipitor) 10 mg BEDTIME ORAL 02/08/18 21:00 03/10/18 20:59 Bisacodyl (Dulcolax) 10 mg DAILYPRN PRN RECTAL Constipation 02/06/18 08:15 03/08/18 08:14 Calcium Carbonate (Os-Rivas) 1,250 mg BIDPC ORAL 02/06/18 09:00 03/08/18 08:59 Carbidopa/Levodopa (Sinemet 25/100) 1 tab Q4HR ORAL 02/06/18 09:00 03/08/18 08:59 02/09/18 00:12 Carvedilol (Coreg) 6.25 mg EVERY 12 HOURS ORAL 02/08/18 09:00 03/10/18 08:59 Clonidine HCl (Catapres Tab) 0.1 mg Q4H PRN ORAL SBP greater than 160 02/06/18 09:00 7/25/18 08:59 Dextrose 1,000 ml @ 75 mls/hr [id number] IV 02/07/18 09:00 03/09/18 08:59 02/09/18 00:14 Dextrose (Dextrose 50%) 25 ml STAT PRN IV Hypoglycemia 02/06/18 08:15 03/08/18 08:14 Dextrose (Dextrose 50%) 50 ml STAT PRN IV Hypoglycemia 02/06/18 08:15 03/08/18 08:14 Digoxin (Lanoxin) 0.125 mg DAILY ORAL 02/06/18 09:00 03/08/18 08:59 Docusate Sodium (Colace) 100 mg TWICE A DAY ORAL 02/06/18 09:00 03/08/18 08:59 Dorzolamide HCl (Trusopt) 1 drop TWICE A DAY RIGHT EYE 02/06/18 10:00 03/08/18 09:59 02/08/18 17:17 Ferrous Sulfate (Feosol) 325 mg THREE TIMES A DAY ORAL 02/06/18 09:00 03/08/18 08:59 02/07/18 12:04 Finasteride (Proscar) 5 mg DAILY ORAL 02/06/18 09:00 03/08/18 08:59 Folic Acid (Folate) 1 mg DAILY ORAL 02/06/18 09:00 03/08/18 08:59 Insulin Aspart (NovoLOG) BEFORE MEALS AND HS SUBQ 02/06/18 11:30 03/08/18 11:29 02/09/18 06:01 Insulin Detemir (Levemir) 8 units BID SUBQ 02/06/18 09:00 03/08/18 08:59 02/08/18 18:18 Latanoprost (Xalatan) 1 drop BEDTIME BOTH EYES 02/06/18 21:00 03/08/18 20:59 02/08/18 20:59 Linezolid 300 ml @ 300 mls/hr Q12HR@0400,1600 IVPB 02/07/18 16:00 02/14/18 15:59 02/09/18 03:13 Magnesium Hydroxide (Mom) 30 ml DAILY ORAL 02/06/18 09:00 03/08/18 08:59 Memantine (Namenda) 10 mg TWICE A DAY ORAL 02/06/18 09:00 03/08/18 08:59 Multivitamins (Multivitamins) 1 tab DAILY ORAL 02/06/18 09:00 03/08/18 08:59 Pantoprazole (Protonix) 40 mg DAILY ORAL 02/06/18 09:00 03/08/18 08:59 Piperacillin Sod/ Tazobactam Sod 3.375 gm/Dextrose 110 ml @ 27.5 mls/hr EVERY 8 HOURS IVPB 02/06/18 14:00 02/11/18 13:59 02/09/18 05:55 Potassium Chloride 100 ml @ 100 mls/hr Q1HR IVPB 02/09/18 10:00 02/09/18 12:59 Sennosides (Senokot) 1 tab BEDTIME ORAL 02/06/18 21:00 03/08/18 20:59 Tamsulosin HCl (Flomax) 0.4 mg BEDTIME ORAL 02/06/18 21:00 03/08/18 20:59 Vitamin B Complex (Vitamin B Complex) 1 tab BEDTIME ORAL 02/06/18 21:00 03/08/18 20:59 Vitamin D (Vitamin D) 1,000 intlu DAILY ORAL 02/06/18 09:00 03/08/18 08:59 Warfarin Sodium (Coumadin per pharmacy) 1 ea DAILY PRN MISC Per rx protocol 02/06/18 08:30 03/08/18 08:29 Pavan Delacruz MD Feb 09, 2018 09:28
[2018-02-09 12:00] VITALS: BP 102/56
[2018-02-09 16:49] VITALS: BP 103/50
--- NOTE | 2018-02-09 16:56 | General Progress Note ---
Assessment/Plan Problem List: (1) Anemia ICD Codes: D64.9 - Anemia, unspecified SNOMED: 128591779 Qualifiers: Qualified Codes: D64.9 - Anemia, unspecified (2) CKD (chronic kidney disease) ICD Codes: N18.9 - Chronic kidney disease, unspecified SNOMED: 487246591 Qualifiers: Qualified Codes: N18.9 - Chronic kidney disease, unspecified (3) Toxic metabolic encephalopathy ICD Codes: G92 - Toxic encephalopathy SNOMED: 639805743 (4) CHF (congestive heart failure) ICD Codes: I50.9 - Heart failure, unspecified SNOMED: 25690817 Qualifiers: Qualified Codes: I50.9 - Heart failure, unspecified (5) UTI (urinary tract infection) ICD Codes: N39.0 - Urinary tract infection, site not specified SNOMED: 17540125 Qualifiers: Qualified Codes: N30.00 - Acute cystitis without hematuria Status: stable Assessment/Plan iv abx swallow eval/therapy no gt/ngt per conservator follow up cultures hypotonic fluids replace lytes prn diuresis monitor fluid status Subjective ROS Limited/Unobtainable: Yes Constitutional: Reports: malaise, weakness HEENT: Reports: no symptoms Cardiovascular: Reports: edema Respiratory: Reports: shortness of breath Gastrointestinal/Abdominal: Reports: difficulty swallowing Genitourinary: Reports: no symptoms Neurologic/Psychiatric: Reports: pre-existing deficit Endocrine: Reports: no symptoms Hematologic/Lymphatic: Reports: no symptoms Allergies: Coded Allergies: APIXABAN (Unverified Allergy, Unknown, 02/06/18) BUMETANIDE (Unverified Allergy, Unknown, 02/06/18) SPIRONOLACTONE (Unverified Allergy, Unknown, 02/06/18) All Systems: reviewed and negative except above Subjective no events. w/o complaints. off bipap. feels better. labs reviewed. cards/id noted. difficulty swallowing. not hungry. on ivf. low k noted. renal fxn improving. Objective Last 24 Hour Vital Signs Date Time Temp Pulse Resp B/P (MAP) Pulse Ox O2 Delivery O2 Flow Rate FiO2 02/09/18 16:49 97.6 76 18 103/50 100 Nasal Cannula 2.0 97.6 02/09/18 16:00 79 02/09/18 14:52 58 20 99 Nasal Cannula 2.0 28 6/28/18 14:43 52 20 97 Nasal Cannula 2.0 28 02/09/18 12:00 97.5 80 17 102/56 95 Nasal Cannula 2.0 97.5 02/09/18 12:00 75 02/09/18 11:00 42 20 99 Nasal Cannula 2.0 02/09/18 10:49 40 20 99 Nasal Cannula 2.0 02/09/18 09:00 70 102/59 02/09/18 09:00 70 02/09/18 08:28 97.5 70 22 102/59 99 Nasal Cannula 2.0 97.5 02/09/18 08:12 71 20 97 Nasal Cannula 2.0 02/09/18 08:12 74 20 98 Nasal Cannula 2.0 02/09/18 08:12 Nasal Cannula 2.0 02/09/18 08:11 97 Nasal Cannula 2.0 02/09/18 08:00 75 02/09/18 04:00 89 02/09/18 04:00 97.2 77 20 93/52 100 Nasal Cannula 2.0 97.2 02/09/18 02:15 70 16 100 Nasal Cannula 2.0 02/09/18 02:07 67 20 98 Nasal Cannula 2.0 02/09/18 00:00 82 02/09/18 00:00 97.4 73 20 110/55 100 Nasal Cannula 2.0 97.4 02/08/18 23:09 78 16 99 Nasal Cannula 2.0 02/08/18 22:58 75 20 96 Nasal Cannula 2.0 02/08/18 20:59 75 102/55 02/08/18 20:00 97.4 75 20 102/55 100 Nasal Cannula 2.0 97.4 02/08/18 20:00 75 02/08/18 19:37 80 16 100 Nasal Cannula 2.0 02/08/18 19:24 Nasal Cannula 2.0 02/08/18 19:24 98 Nasal Cannula 2.0 02/08/18 19:24 78 16 98 Nasal Cannula 2.0 28 Intake and Output 02/08/18 02/09/18 19:00 07:00 Intake Total 1170.0 ml 1367.5 ml Output Total 800 ml 350 ml Balance 370.0 ml 1017.5 ml Intake Oral 30 ml IV Total 1170.0 ml 1337.5 ml Output Urine Total 800 ml 350 ml # Bowel Movements 1 Laboratory Tests 02/09/18 03:54: Prothrombin Time 17.9H, Prothromb Time International Ratio 1.7H, Sodium Level 137, Potassium Level 3.0L, Chloride Level 97L, Carbon Dioxide Level 31, Anion Gap 9, Blood Urea Nitrogen 41H, Creatinine 1.4H, Estimat Glomerular Filtration Rate , Glucose Level 182H, Calcium Level 8.4L, Total Bilirubin 0.6, Aspartate Amino Transf (AST/SGOT) 27, Alanine Aminotransferase (ALT/SGPT) 16, Alkaline Phosphatase 67, Total Protein 6.6, Albumin 2.6L, Globulin 4.0, Albumin/Globulin Ratio 0.6L Height (Feet): 6 Height (Inches): 0.00 Weight (Pounds): 155 Objective General Appearance: WD/WN, alert Neck: supple Cardiovascular: regular rhythm Respiratory/Chest: chest wall non-tender, lungs clear, normal breath sounds, no respiratory distress Abdomen: normal bowel sounds, non tender, soft, no organomegaly Edema: no edema noted Arm (L), no edema noted Arm (R), no edema noted Leg (L), no edema noted Leg (R), no edema noted Pedal (L), no edema noted Pedal (R), no edema noted Generalized Sai Berry MD Feb 09, 2018 16:56
[2018-02-09] MEDS ORDERED: Warfarin Sodium 3mg ORAL ONE (17:00)
--- NOTE | 2018-02-09 17:53 | Urology Progress Note ---
Assessment/Plan Assessment/Plan 1. Pyuria and probable urinary tract infection. 2. Proteinuria. 3. Benign prostatic hypertrophy history. 4. Urinary retention. 5. Neurogenic bladder. 6. Chronic renal insufficiency. camarena indwelling abx as ordered flomax and proscar voiding trial? cysto later Subjective Allergies: Coded Allergies: APIXABAN (Unverified Allergy, Unknown, 02/06/18) BUMETANIDE (Unverified Allergy, Unknown, 02/06/18) SPIRONOLACTONE (Unverified Allergy, Unknown, 02/06/18) Subjective non-verbal Objective Last 24 Hour Vital Signs Date Time Temp Pulse Resp B/P (MAP) Pulse Ox O2 Delivery O2 Flow Rate FiO2 02/09/18 16:49 97.6 76 18 103/50 100 Nasal Cannula 2.0 97.6 02/09/18 16:00 79 02/09/18 14:52 58 20 99 Nasal Cannula 2.0 28 02/09/18 14:43 52 20 97 Nasal Cannula 2.0 28 02/09/18 12:00 97.5 80 17 102/56 95 Nasal Cannula 2.0 97.5 02/09/18 12:00 75 02/09/18 11:00 42 20 99 Nasal Cannula 2.0 02/09/18 10:49 40 20 99 Nasal Cannula 2.0 02/09/18 09:00 70 102/59 02/09/18 09:00 70 02/09/18 08:28 97.5 70 22 102/59 99 Nasal Cannula 2.0 97.5 02/09/18 08:12 71 20 97 Nasal Cannula 2.0 28 02/09/18 08:12 74 20 98 Nasal Cannula 2.0 28 02/09/18 08:12 Nasal Cannula 2.0 28 02/09/18 08:11 97 Nasal Cannula 2.0 28 02/09/18 08:00 75 02/09/18 04:00 89 02/09/18 04:00 97.2 77 20 93/52 100 Nasal Cannula 2.0 97.2 02/09/18 02:15 70 16 100 Nasal Cannula 2.0 28 02/09/18 02:07 67 20 98 Nasal Cannula 2.0 28 02/09/18 00:00 82 02/09/18 00:00 97.4 73 20 110/55 100 Nasal Cannula 2.0 97.4 02/08/18 23:09 78 16 99 Nasal Cannula 2.0 28 02/08/18 22:58 75 20 96 Nasal Cannula 2.0 28 02/08/18 20:59 75 102/55 02/08/18 20:00 97.4 75 20 102/55 100 Nasal Cannula 2.0 97.4 02/08/18 20:00 75 02/08/18 19:37 80 16 100 Nasal Cannula 2.0 28 02/08/18 19:24 Nasal Cannula 2.0 28 02/08/18 19:24 98 Nasal Cannula 2.0 28 02/08/18 19:24 78 16 98 Nasal Cannula 2.0 28 Intake and Output 02/08/18 02/09/18 19:00 07:00 Intake Total 1170.0 ml 1367.5 ml Output Total 800 ml 350 ml Balance 370.0 ml 1017.5 ml Intake Oral 30 ml IV Total 1170.0 ml 1337.5 ml Output Urine Total 800 ml 350 ml # Bowel Movements 1 Microbiology Date/Time Source Procedure Growth Status 02/06/18 01:07 Blood Blood Culture - Final Staphylococcus Sp Coag Neg Complete 02/06/18 01:07 Nasal Nares MRSA Culture - Final Staphylococcus Aureus - Mrsa Complete 02/06/18 01:07 Urine,Clean Catch Urine Culture - Final NO GROWTH AFTER 48 HOURS Complete 02/06/18 01:07 Rectum VRE Culture - Final Enterococcus Faecalis - Vre Complete 02/06/18 01:07 Rectum - Final NO CARBAPENEM-RESISTANT ENTEROBACTERI... Complete Current Medications Medications (Trade) Dose Ordered Sig/Karolina Route PRN Reason Start Time Stop Time Status Last Admin Dose Admin Acetaminophen (Tylenol) 650 mg Q6H PRN ORAL Mild Pain (Pain Scale 1-3) 02/06/18 08:15 03/08/18 08:14 Albuterol/ Ipratropium (Albuterol/ Ipratropium) 3 ml Q4HRT HHN 02/06/18 11:00 02/11/18 10:59 02/09/18 14:41 Ascorbic Acid (Vitamin C) 500 mg DAILY ORAL 02/06/18 09:00 03/08/18 08:59 Aspirin (ASA) 81 mg DAILY ORAL 02/07/18 09:00 03/09/18 08:59 Atorvastatin Calcium (Lipitor) 10 mg BEDTIME ORAL 02/08/18 21:00 03/10/18 20:59 Bisacodyl (Dulcolax) 10 mg DAILYPRN PRN RECTAL Constipation 02/06/18 08:15 03/08/18 08:14 Calcium Carbonate (Os-Rivas) 1,250 mg BIDPC ORAL 02/06/18 09:00 03/08/18 08:59 Carbidopa/Levodopa (Sinemet 25/100) 1 tab Q4HR ORAL 02/06/18 09:00 03/08/18 08:59 02/09/18 00:12 Carvedilol (Coreg) 6.25 mg EVERY 12 HOURS ORAL 02/08/18 09:00 03/10/18 08:59 Clonidine HCl (Catapres Tab) 0.1 mg Q4H PRN ORAL SBP greater than 160 02/06/18 09:00 03/08/18 08:59 Dextrose (Dextrose 50%) 25 ml STAT PRN IV Hypoglycemia 02/06/18 08:15 03/08/18 08:14 Dextrose (Dextrose 50%) 50 ml STAT PRN IV Hypoglycemia 02/06/18 08:15 03/08/18 08:14 Digoxin (Lanoxin) 0.125 mg DAILY ORAL 02/06/18 09:00 03/08/18 08:59 Docusate Sodium (Colace) 100 mg TWICE A DAY ORAL 02/06/18 09:00 03/08/18 08:59 Dorzolamide HCl (Trusopt) 1 drop TWICE A DAY RIGHT EYE 02/06/18 10:00 03/08/18 09:59 02/09/18 17:46 Ferrous Sulfate (Feosol) 325 mg THREE TIMES A DAY ORAL 02/06/18 09:00 03/08/18 08:59 02/07/18 12:04 Finasteride (Proscar) 5 mg DAILY ORAL 02/06/18 09:00 03/08/18 08:59 Folic Acid (Folate) 1 mg DAILY ORAL 02/06/18 09:00 03/08/18 08:59 Insulin Aspart (NovoLOG) BEFORE MEALS AND HS SUBQ 02/06/18 11:30 03/08/18 11:29 02/09/18 17:48 Insulin Detemir (Levemir) 8 units BID SUBQ 02/06/18 09:00 03/08/18 08:59 02/09/18 17:48 Latanoprost (Xalatan) 1 drop BEDTIME BOTH EYES 02/06/18 21:00 03/08/18 20:59 02/08/18 20:59 Magnesium Hydroxide (Mom) 30 ml DAILY ORAL 02/06/18 09:00 03/08/18 08:59 Memantine (Namenda) 10 mg TWICE A DAY ORAL 02/06/18 09:00 03/08/18 08:59 Multivitamins (Multivitamins) 1 tab DAILY ORAL 02/06/18 09:00 03/08/18 08:59 Pantoprazole (Protonix) 40 mg DAILY ORAL 02/06/18 09:00 03/08/18 08:59 Piperacillin Sod/ Tazobactam Sod 3.375 gm/Dextrose 110 ml @ 27.5 mls/hr EVERY 8 HOURS IVPB 02/06/18 14:00 02/11/18 13:59 02/09/18 13:08 Sennosides (Senokot) 1 tab BEDTIME ORAL 02/06/18 21:00 03/08/18 20:59 Tamsulosin HCl (Flomax) 0.4 mg BEDTIME ORAL 02/06/18 21:00 03/08/18 20:59 Vitamin B Complex (Vitamin B Complex) 1 tab BEDTIME ORAL 02/06/18 21:00 03/08/18 20:59 Vitamin D (Vitamin D) 1,000 intlu DAILY ORAL 02/06/18 09:00 03/08/18 08:59 Warfarin Sodium (Coumadin per pharmacy) 1 ea DAILY PRN MISC Per rx protocol 02/06/18 08:30 03/08/18 08:29 Laboratory Tests 02/09/18 03:54: Prothrombin Time 17.9H, Prothromb Time International Ratio 1.7H, Sodium Level 137, Potassium Level 3.0L, Chloride Level 97L, Carbon Dioxide Level 31, Anion Gap 9, Blood Urea Nitrogen 41H, Creatinine 1.4H, Estimat Glomerular Filtration Rate , Glucose Level 182H, Calcium Level 8.4L, Total Bilirubin 0.6, Aspartate Amino Transf (AST/SGOT) 27, Alanine Aminotransferase (ALT/SGPT) 16, Alkaline Phosphatase 67, Total Protein 6.6, Albumin 2.6L, Globulin 4.0, Albumin/Globulin Ratio 0.6L Height (Feet): 6 Height (Inches): 0.00 Weight (Pounds): 155 Objective exam stable, camarena indwelling, urine grossly yellow CARLOS MAN Feb 09, 2018 17:53
[2018-02-09 20:00] VITALS: BP 108/55
[2018-02-09] MEDS: Latanoprost 0.005% Opth 2.5ml Soln BOTH EYES SCH (20:53)
[2018-02-09] MEDS: Vitamin B Complex Tab ORAL SCH (21:00)
[2018-02-09] MEDS: Sennosides 8.6mg ORAL SCH (21:00)
[2018-02-09] MEDS: Tamsulosin 0.4mg cap ORAL SCH (21:00)
[2018-02-10] VITALS (7 sets, daily range): BP systolic 98–120; BP diastolic 57–63
[2018-02-10] MEDS: Levodopa/Carbidopa 25/100 tab ORAL SCH ×6 (01:00→22:38)
--- NOTE | 2018-02-10 01:16 | Progress Note ---
DATE: 02/09/2018 CARDIOLOGY PROGRESS NOTE SUBJECTIVE: The patient has no complaints, off BiPAP, feels better. Poor appetite noted. Difficulty swallowing described. He remains on IV fluids. OBJECTIVE: VITAL SIGNS: Blood pressure 103/50, pulse 76, and respiratory rate 18. Monitored rhythm, atrial fibrillation with ventricular pacing. LUNGS: Coarse breath sounds. HEART: Regular rhythm and rate. Normal S1, paradoxically split S2. ABDOMEN: Soft. EXTREMITIES: Trace edema. LABORATORY AND DIAGNOSTIC DATA: Sodium 137, potassium 3.0, bicarbonate 31, BUN 41, and creatinine 1.4. Albumin 3.6. IMPRESSION: 1. Acute on chronic diastolic congestive heart failure, improved. 2. Acute on chronic renal insufficiency, improved. 3. Hypokalemia. 4. Cardiac defibrillator. 5. Anemia of chronic kidney disease. 6. Paroxysmal atrial fibrillation. 7. Acute cystitis. 8. Dysphagia. PLAN: 1. Antimicrobials. 2. Potassium replacement. 3. Swallow evaluation. 4. Hypotonic fluids to correct electrolyte abnormalities as needed. 5. Full anticoagulation for cardioembolic prophylaxis. Charlie Ashraf M.D. DR: CHINAMY JOB#: [id number] CC:
[2018-02-10] MEDS: Albuterol/Ipratropium 3ml neb HHN SCH ×4 (03:02→20:16)
[2018-02-10] MEDS: NovoLOG Insulin Flexpen SUBQ SCH ×4 (06:27→21:00)
[2018-02-10] MEDS: Piperacillin/Tazobactam 3.375 GM in D5W 110 ML IVPB SCH ×3 (06:27→22:00)
[2018-02-10 07:43] LABS: ALANINE AMINOTRANSFERASE 13 U/L (12-78); ALBUMIN 2.8 G/DL (3.4-5.0); ALBUMIN/GLOBULIN RATIO 0.7 (1.0-2.7); ALKALINE PHOSPHATASE 72 U/L (46-116); ANION GAP 8 mmol/L (5-15); ASPARTATE AMINO TRANSFERASE 30 U/L (15-37); BILIRUBIN,TOTAL 0.6 MG/DL (0.2-1.0); BLOOD UREA NITROGEN 30 mg/dL (7-18); CALCIUM 8.4 MG/DL (8.5-10.1); CARBON DIOXIDE 30 MMOL/L (21-32); CHLORIDE 96 MMOL/L (98-107); CREATININE 1.3 MG/DL (0.55-1.30); POTASSIUM 3.3 MMOL/L (3.5-5.1)
[2018-02-10 08:06] LABS: SODIUM 134 MMOL/L (136-145)
--- NOTE | 2018-02-10 08:19 | Urology Progress Note ---
Assessment/Plan Assessment/Plan 1. Pyuria and probable urinary tract infection. 2. Proteinuria. 3. Benign prostatic hypertrophy history. 4. Urinary retention. 5. Neurogenic bladder. 6. Chronic renal insufficiency, improved. camarena indwelling hand irrigated and patent secured to pt's leg abx as ordered flomax and proscar voiding trial? cysto later renal fxn has improved d/w Dr. Berry Subjective Allergies: Coded Allergies: APIXABAN (Unverified Allergy, Unknown, 02/06/18) BUMETANIDE (Unverified Allergy, Unknown, 02/06/18) SPIRONOLACTONE (Unverified Allergy, Unknown, 02/06/18) Subjective non-verbal Objective Last 24 Hour Vital Signs Date Time Temp Pulse Resp B/P (MAP) Pulse Ox O2 Delivery O2 Flow Rate FiO2 02/10/18 07:50 Nasal Cannula 2.0 02/10/18 07:50 96 Nasal Cannula 2.0 02/10/18 04:27 81 02/10/18 04:00 97.9 80 24 107/57 100 Nasal Cannula 2.0 97.9 02/10/18 03:12 75 18 99 Nasal Cannula 2.0 02/10/18 03:02 72 18 98 Nasal Cannula 2.0 02/10/18 00:00 98.1 75 24 119/63 100 Nasal Cannula 2.0 98.1 02/09/18 23:56 84 02/09/18 22:37 75 18 99 Nasal Cannula 2.0 02/09/18 22:27 74 18 97 Nasal Cannula 2.0 02/09/18 21:00 75 108/55 02/09/18 20:00 97.6 75 24 108/55 97 Nasal Cannula 2.0 97.6 02/09/18 19:11 81 02/09/18 19:11 76 20 98 Nasal Cannula 2.0 02/09/18 19:01 Nasal Cannula 2.0 02/09/18 19:01 95 Nasal Cannula 2.0 02/09/18 19:01 75 20 95 Nasal Cannula 2.0 02/09/18 16:49 97.6 76 18 103/50 100 Nasal Cannula 2.0 97.6 02/09/18 16:00 79 02/09/18 14:52 58 20 99 Nasal Cannula 2.0 02/09/18 14:43 52 20 97 Nasal Cannula 2.0 28 02/09/18 12:00 97.5 80 17 102/56 95 Nasal Cannula 2.0 97.5 02/09/18 12:00 75 02/09/18 11:00 42 20 99 Nasal Cannula 2.0 28 02/09/18 10:49 40 20 99 Nasal Cannula 2.0 28 02/09/18 09:00 70 102/59 02/09/18 09:00 70 02/09/18 08:28 97.5 70 22 102/59 99 Nasal Cannula 2.0 97.5 Intake and Output 02/09/18 02/10/18 19:00 07:00 Intake Total 1030.0 ml 110.00 ml Output Total 600 ml 800 ml Balance 430.0 ml -690.00 ml IV Total 1030.0 ml 110.00 ml Output Urine Total 600 ml 800 ml # Bowel Movements 2 2 Microbiology Date/Time Source Procedure Growth Status 02/06/18 01:07 Blood Blood Culture - Final Staphylococcus Sp Coag Neg Complete 02/06/18 01:07 Nasal Nares MRSA Culture - Final Staphylococcus Aureus - Mrsa Complete 02/06/18 01:07 Urine,Clean Catch Urine Culture - Final NO GROWTH AFTER 48 HOURS Complete 02/06/18 01:07 Rectum VRE Culture - Final Enterococcus Faecalis - Vre Complete 02/06/18 01:07 Rectum - Final NO CARBAPENEM-RESISTANT ENTEROBACTERI... Complete Current Medications Medications (Trade) Dose Ordered Sig/Karolina Route PRN Reason Start Time Stop Time Status Last Admin Dose Admin Acetaminophen (Tylenol) 650 mg Q6H PRN ORAL Mild Pain (Pain Scale 1-3) 02/10/18 08:15 03/08/18 08:14 UNV Albuterol/ Ipratropium (Albuterol/ Ipratropium) 3 ml Q4HRT HHN 02/10/18 07:00 02/11/18 10:59 UNV Ascorbic Acid (Vitamin C) 500 mg DAILY ORAL 02/10/18 09:00 03/08/18 08:59 UNV Aspirin (ASA) 81 mg DAILY ORAL 02/10/18 09:00 03/09/18 08:59 UNV Atorvastatin Calcium (Lipitor) 10 mg BEDTIME ORAL 02/10/18 21:00 03/10/18 20:59 UNV Bisacodyl (Dulcolax) 10 mg DAILYPRN PRN RECTAL Constipation 02/10/18 08:15 03/08/18 08:14 UNV Calcium Carbonate (Os-Rivas) 1,250 mg BIDPC ORAL 02/10/18 09:00 03/08/18 08:59 UNV Carbidopa/Levodopa (Sinemet 25/100) 1 tab Q4HR ORAL 02/10/18 09:00 03/08/18 08:59 UNV Carvedilol (Coreg) 6.25 mg EVERY 12 HOURS ORAL 02/10/18 09:00 03/10/18 08:59 UNV Clonidine HCl (Catapres Tab) 0.1 mg Q4H PRN ORAL SBP greater than 160 02/10/18 09:00 03/08/18 08:59 UNV Dextrose (Dextrose 50%) 25 ml STAT PRN IV Hypoglycemia 02/10/18 08:15 03/08/18 08:14 UNV Dextrose (Dextrose 50%) 50 ml STAT PRN IV Hypoglycemia 02/10/18 08:15 03/08/18 08:14 UNV Digoxin (Lanoxin) 0.125 mg DAILY ORAL 02/10/18 09:00 03/08/18 08:59 UNV Docusate Sodium (Colace) 100 mg TWICE A DAY ORAL 02/10/18 09:00 03/08/18 08:59 UNV Dorzolamide HCl (Trusopt) 1 drop TWICE A DAY RIGHT EYE 02/10/18 09:00 03/08/18 09:59 UNV Ferrous Sulfate (Feosol) 325 mg THREE TIMES A DAY ORAL 02/10/18 09:00 03/08/18 08:59 UNV Finasteride (Proscar) 5 mg DAILY ORAL 02/10/18 09:00 03/08/18 08:59 UNV Folic Acid (Folate) 1 mg DAILY ORAL 02/10/18 09:00 03/08/18 08:59 UNV Insulin Aspart (NovoLOG) BEFORE MEALS AND HS SUBQ 02/10/18 11:30 03/08/18 11:29 UNV Insulin Detemir (Levemir) 8 units BID SUBQ 02/10/18 09:00 03/08/18 08:59 UNV Latanoprost (Xalatan) 1 drop BEDTIME BOTH EYES 02/10/18 21:00 03/08/18 20:59 UNV Magnesium Hydroxide (Mom) 30 ml DAILY ORAL 02/10/18 09:00 03/08/18 08:59 UNV Memantine (Namenda) 10 mg TWICE A DAY ORAL 02/10/18 09:00 03/08/18 08:59 UNV Multivitamins (Multivitamins) 1 tab DAILY ORAL 02/10/18 09:00 03/08/18 08:59 UNV Pantoprazole (Protonix) 40 mg DAILY ORAL 02/10/18 09:00 03/08/18 08:59 UNV Piperacillin Sod/ Tazobactam Sod 3.375 gm/Dextrose 110 ml @ 27.5 mls/hr EVERY 8 HOURS IVPB 02/10/18 14:00 02/11/18 13:59 UNV Sennosides (Senokot) 1 tab BEDTIME ORAL 02/10/18 21:00 03/08/18 20:59 UNV Tamsulosin HCl (Flomax) 0.4 mg BEDTIME ORAL 02/10/18 21:00 03/08/18 20:59 UNV Vitamin B Complex (Vitamin B Complex) 1 tab BEDTIME ORAL 02/10/18 21:00 03/08/18 20:59 UNV Vitamin D (Vitamin D) 1,000 intlu DAILY ORAL 02/10/18 09:00 03/08/18 08:59 UNV Warfarin Sodium (Coumadin per pharmacy) 1 ea DAILY PRN MISC Per rx protocol 02/10/18 09:00 03/08/18 08:29 UNV Laboratory Tests 02/10/18 04:30: Sodium Level 134L, Potassium Level 3.3L, Chloride Level 96L, Carbon Dioxide Level 30, Anion Gap 8, Blood Urea Nitrogen 30H, Creatinine 1.3, Estimat Glomerular Filtration Rate , Glucose Level 45#L, Calcium Level 8.4L, Magnesium Level 2.1, Total Bilirubin 0.6, Aspartate Amino Transf (AST/SGOT) 30, Alanine Aminotransferase (ALT/SGPT) 13, Alkaline Phosphatase 72, Pro-B-Type Natriuretic Peptide 42442V, Total Protein 6.8, Albumin 2.8L, Globulin 4.0, Albumin/Globulin Ratio 0.7L Height (Feet): 6 Height (Inches): 0.00 Weight (Pounds): 152 Objective exam stable, camarena indwelling, urine grossly yellow, mild debris CARLOS MAN Feb 10, 2018 08:19
--- NOTE | 2018-02-10 09:16 | General Progress Note ---
Assessment/Plan Problem List: (1) Anemia ICD Codes: D64.9 - Anemia, unspecified SNOMED: 969484687 Qualifiers: Qualified Codes: D64.9 - Anemia, unspecified (2) CKD (chronic kidney disease) ICD Codes: N18.9 - Chronic kidney disease, unspecified SNOMED: 867746832 Qualifiers: Qualified Codes: N18.9 - Chronic kidney disease, unspecified (3) Toxic metabolic encephalopathy ICD Codes: G92 - Toxic encephalopathy SNOMED: 674255228 (4) CHF (congestive heart failure) ICD Codes: I50.9 - Heart failure, unspecified SNOMED: 66368423 Qualifiers: Qualified Codes: I50.9 - Heart failure, unspecified (5) UTI (urinary tract infection) ICD Codes: N39.0 - Urinary tract infection, site not specified SNOMED: 93547673 Qualifiers: Qualified Codes: N30.00 - Acute cystitis without hematuria Status: stable, progressing Assessment/Plan iv abx swallow eval/therapy no gt/ngt per conservator follow up cultures dc ivf lasix x 1 check cxr replace lytes prn diuresis monitor fluid status Subjective ROS Limited/Unobtainable: No Constitutional: Reports: malaise, weakness HEENT: Reports: no symptoms Cardiovascular: Reports: no symptoms Respiratory: Reports: cough, shortness of breath Gastrointestinal/Abdominal: Reports: difficulty swallowing Genitourinary: Reports: no symptoms Neurologic/Psychiatric: Reports: pre-existing deficit Endocrine: Reports: no symptoms Hematologic/Lymphatic: Reports: anemia Allergies: Coded Allergies: APIXABAN (Unverified Allergy, Unknown, 02/06/18) BUMETANIDE (Unverified Allergy, Unknown, 02/06/18) SPIRONOLACTONE (Unverified Allergy, Unknown, 02/06/18) All Systems: reviewed and negative except above Subjective no events. w/o complaints. off bipap. feels better. labs reviewed. cards/id noted. difficulty swallowing. not hungry. off ivf. npa higher. able to eat breakfast Objective Last 24 Hour Vital Signs Date Time Temp Pulse Resp B/P (MAP) Pulse Ox O2 Delivery O2 Flow Rate FiO2 02/10/18 07:50 Nasal Cannula 2.0 28 02/10/18 07:50 96 Nasal Cannula 2.0 28 02/10/18 04:27 81 02/10/18 04:00 97.9 80 24 107/57 100 Nasal Cannula 2.0 97.9 02/10/18 03:12 75 18 99 Nasal Cannula 2.0 02/10/18 03:02 72 18 98 Nasal Cannula 2.0 02/10/18 00:00 98.1 75 24 119/63 100 Nasal Cannula 2.0 98.1 02/09/18 23:56 84 02/09/18 22:37 75 18 99 Nasal Cannula 2.0 02/09/18 22:27 74 18 97 Nasal Cannula 2.0 02/09/18 21:00 75 108/55 02/09/18 20:00 97.6 75 24 108/55 97 Nasal Cannula 2.0 97.6 02/09/18 19:11 81 02/09/18 19:11 76 20 98 Nasal Cannula 2.0 02/09/18 19:01 Nasal Cannula 2.0 02/09/18 19:01 95 Nasal Cannula 2.0 02/09/18 19:01 75 20 95 Nasal Cannula 2.0 02/09/18 16:49 97.6 76 18 103/50 100 Nasal Cannula 2.0 97.6 02/09/18 16:00 79 02/09/18 14:52 58 20 99 Nasal Cannula 2.0 02/09/18 14:43 52 20 97 Nasal Cannula 2.0 02/09/18 12:00 97.5 80 17 102/56 95 Nasal Cannula 2.0 97.5 02/09/18 12:00 75 02/09/18 11:00 42 20 99 Nasal Cannula 2.0 02/09/18 10:49 40 20 99 Nasal Cannula 2.0 28 Intake and Output 02/09/18 02/10/18 19:00 07:00 Intake Total 1030.0 ml 110.00 ml Output Total 600 ml 800 ml Balance 430.0 ml -690.00 ml IV Total 1030.0 ml 110.00 ml Output Urine Total 600 ml 800 ml # Bowel Movements 2 2 Laboratory Tests 02/10/18 04:30: Sodium Level 134L, Potassium Level 3.3L, Chloride Level 96L, Carbon Dioxide Level 30, Anion Gap 8, Blood Urea Nitrogen 30H, Creatinine 1.3, Estimat Glomerular Filtration Rate , Glucose Level 45#L, Calcium Level 8.4L, Magnesium Level 2.1, Total Bilirubin 0.6, Aspartate Amino Transf (AST/SGOT) 30, Alanine Aminotransferase (ALT/SGPT) 13, Alkaline Phosphatase 72, Pro-B-Type Natriuretic Peptide 34479C, Total Protein 6.8, Albumin 2.8L, Globulin 4.0, Albumin/Globulin Ratio 0.7L Height (Feet): 6 Height (Inches): 0.00 Weight (Pounds): 152 Objective General Appearance: WD/WN, alert Neck: supple Cardiovascular: regular rhythm Respiratory/Chest: chest wall non-tender, lungs clear, normal breath sounds, no respiratory distress Abdomen: normal bowel sounds, non tender, soft, no organomegaly Edema: no edema noted Arm (L), no edema noted Arm (R), no edema noted Leg (L), no edema noted Leg (R), no edema noted Pedal (L), no edema noted Pedal (R), no edema noted Generalized Sai Berry MD Feb 10, 2018 09:16
[2018-02-10] MEDS: Milk of Magnesia 30ml Ud ORAL SCH (09:50)
[2018-02-10] MEDS: Docusate 100mg cap ORAL SCH ×2 (09:52→17:46)
[2018-02-10] MEDS: Vitamin D 1000 IU Tab ORAL SCH (09:52)
[2018-02-10] MEDS: Memantine 10mg tab ORAL SCH ×2 (09:52→17:46)
[2018-02-10] MEDS: Aspirin Baby 81mg ORAL SCH (09:52)
[2018-02-10] MEDS: Carvedilol 6.25mg Tab ORAL SCH ×2 (09:53→22:48)
[2018-02-10] MEDS: Ascorbic Acid 500mg tab ORAL SCH (09:53)
[2018-02-10] MEDS: Digoxin 0.125mg tab ORAL SCH (09:54)
[2018-02-10] MEDS: Levemir Flexpen SUBQ SCH ×2 (11:50→18:00)
--- NOTE | 2018-02-10 13:36 | Infectious Diseases Prog Note ---
Assessment/Plan Assessment/Plan A 1. UTI 2. renal failure improving 3. COPD 4. CHF 5. diabetes 6. 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 continue Zosyn , 2. will follow up cultures Subjective ROS Limited/Unobtainable: Yes Allergies: Coded Allergies: APIXABAN (Unverified Allergy, Unknown, 02/06/18) BUMETANIDE (Unverified Allergy, Unknown, 02/06/18) SPIRONOLACTONE (Unverified Allergy, Unknown, 02/06/18) Objective Vital Signs Last 24 Hour Vital Signs Date Time Temp Pulse Resp B/P (MAP) Pulse Ox O2 Delivery O2 Flow Rate FiO2 02/10/18 12:00 98.1 73 18 108/60 97 Nasal Cannula 2.0 98.1 02/10/18 10:52 59 18 99 Nasal Cannula 2.0 02/10/18 10:42 57 16 98 Nasal Cannula 2.0 02/10/18 09:54 66 02/10/18 09:53 66 108/62 02/10/18 08:00 98.4 66 18 108/62 100 Nasal Cannula 2.0 98.4 02/10/18 07:50 Nasal Cannula 2.0 28 02/10/18 07:50 96 Nasal Cannula 2.0 02/10/18 04:27 81 02/10/18 04:00 97.9 80 24 107/57 100 Nasal Cannula 2.0 97.9 02/10/18 03:12 75 18 99 Nasal Cannula 2.0 02/10/18 03:02 72 18 98 Nasal Cannula 2.0 02/10/18 00:00 98.1 75 24 119/63 100 Nasal Cannula 2.0 98.1 02/09/18 23:56 84 02/09/18 22:37 75 18 99 Nasal Cannula 2.0 28 02/09/18 22:27 74 18 97 Nasal Cannula 2.0 28 02/09/18 21:00 75 108/55 02/09/18 20:00 97.6 75 24 108/55 97 Nasal Cannula 2.0 97.6 02/09/18 19:11 81 02/09/18 19:11 76 20 98 Nasal Cannula 2.0 28 02/09/18 19:01 Nasal Cannula 2.0 02/09/18 19:01 95 Nasal Cannula 2.0 28 02/09/18 19:01 75 20 95 Nasal Cannula 2.0 28 02/09/18 16:49 97.6 76 18 103/50 100 Nasal Cannula 2.0 97.6 02/09/18 16:00 79 02/09/18 14:52 58 20 99 Nasal Cannula 2.0 28 02/09/18 14:43 52 20 97 Nasal Cannula 2.0 28 Height (Feet): 6 Height (Inches): 0.00 Weight (Pounds): 152 HEENT: mucous membranes moist Respiratory/Chest: lungs clear Cardiovascular: normal rate, pacemaker/AICD Abdomen: soft, non tender Extremities: no edema Neurologic/Psychiatric: aphasia, other - AWAKE Laboratory Tests Test 02/10/18 04:30 02/10/18 10:50 Sodium Level 134 MMOL/L (136-145) L Potassium Level 3.3 MMOL/L (3.5-5.1) L Chloride Level 96 MMOL/L (98-107) L Carbon Dioxide Level 30 MMOL/L (21-32) Anion Gap 8 mmol/L (5-15) Blood Urea Nitrogen 30 mg/dL (7-18) H Creatinine 1.3 MG/DL (0.55-1.30) Estimat Glomerular Filtration Rate mL/min (>60) Glucose Level 45 MG/DL (74-106) #L Calcium Level 8.4 MG/DL (8.5-10.1) L Magnesium Level 2.1 MG/DL (1.8-2.4) Total Bilirubin 0.6 MG/DL (0.2-1.0) Aspartate Amino Transf (AST/SGOT) 30 U/L (15-37) Alanine Aminotransferase (ALT/SGPT) 13 U/L (12-78) Alkaline Phosphatase 72 U/L (46-116) Pro-B-Type Natriuretic Peptide 49598 pg/mL (0-125) H Total Protein 6.8 G/DL (6.4-8.2) Albumin 2.8 G/DL (3.4-5.0) L Globulin 4.0 g/dL Albumin/Globulin Ratio 0.7 (1.0-2.7) L Prothrombin Time 20.8 SEC (9.30-11.50) H Prothromb Time International Ratio 2.0 (0.9-1.1) H Current Medications Medications (Trade) Dose Ordered Sig/Karolina Route PRN Reason Start Time Stop Time Status Last Admin Dose Admin Acetaminophen (Tylenol) 650 mg Q6H PRN ORAL Mild Pain (Pain Scale 1-3) 02/10/18 08:30 03/08/18 08:29 Albuterol/ Ipratropium (Albuterol/ Ipratropium) 3 ml Q4HRT HHN 02/10/18 11:00 02/11/18 10:59 02/10/18 10:41 Ascorbic Acid (Vitamin C) 500 mg DAILY ORAL 02/10/18 09:00 03/08/18 08:59 02/10/18 09:53 Aspirin (ASA) 81 mg DAILY ORAL 02/10/18 09:00 03/09/18 08:59 Atorvastatin Calcium (Lipitor) 10 mg BEDTIME ORAL 02/10/18 21:00 03/10/18 20:59 Bisacodyl (Dulcolax) 10 mg DAILYPRN PRN RECTAL Constipation 02/10/18 09:00 03/08/18 08:59 Calcium Carbonate (Os-Rivas) 1,250 mg BIDPC ORAL 02/10/18 09:00 03/08/18 08:59 02/10/18 09:51 Carbidopa/Levodopa (Sinemet 25/100) 1 tab Q4HR ORAL 02/10/18 09:00 03/08/18 08:59 02/10/18 13:16 Carvedilol (Coreg) 6.25 mg EVERY 12 HOURS ORAL 02/10/18 09:00 03/10/18 08:59 02/10/18 09:53 Clonidine HCl (Catapres Tab) 0.1 mg Q4H PRN ORAL SBP greater than 160 02/10/18 09:00 03/08/18 08:59 Dextrose (Dextrose 50%) 25 ml STAT PRN IV Hypoglycemia 02/10/18 09:00 03/08/18 08:59 Dextrose (Dextrose 50%) 50 ml STAT PRN IV Hypoglycemia 02/10/18 09:00 03/08/18 08:59 Digoxin (Lanoxin) 0.125 mg DAILY ORAL 02/10/18 09:00 03/08/18 08:59 02/10/18 09:54 Docusate Sodium (Colace) 100 mg TWICE A DAY ORAL 02/10/18 09:00 03/08/18 08:59 02/10/18 09:52 Dorzolamide HCl (Trusopt) 1 drop TWICE A DAY RIGHT EYE 02/10/18 09:00 03/08/18 09:59 Ferrous Sulfate (Feosol) 325 mg THREE TIMES A DAY ORAL 02/10/18 09:00 03/08/18 08:59 02/10/18 13:16 Finasteride (Proscar) 5 mg DAILY ORAL 02/10/18 09:00 03/08/18 08:59 02/10/18 09:51 Folic Acid (Folate) 1 mg DAILY ORAL 02/10/18 09:00 03/08/18 08:59 02/10/18 09:53 Insulin Aspart (NovoLOG) BEFORE MEALS AND HS SUBQ 02/10/18 11:30 03/08/18 11:29 02/10/18 11:49 Insulin Detemir (Levemir) 8 units BID SUBQ 02/10/18 09:00 03/08/18 08:59 02/10/18 11:50 Latanoprost (Xalatan) 1 drop BEDTIME BOTH EYES 02/10/18 21:00 03/08/18 20:59 Magnesium Hydroxide (Mom) 30 ml DAILY ORAL 02/10/18 09:00 03/08/18 08:59 Memantine (Namenda) 10 mg TWICE A DAY ORAL 02/10/18 09:00 03/08/18 08:59 02/10/18 09:52 Multivitamins (Multivitamins) 1 tab DAILY ORAL 02/10/18 09:00 03/08/18 08:59 02/10/18 09:52 Pantoprazole (Protonix) 40 mg DAILY IVP 02/10/18 14:00 03/12/18 13:59 Piperacillin Sod/ Tazobactam Sod 3.375 gm/Dextrose 110 ml @ 27.5 mls/hr EVERY 8 HOURS IVPB 02/10/18 14:00 02/11/18 13:59 Potassium Chloride 100 ml @ 100 mls/hr Q1H IVPB 02/10/18 14:00 02/10/18 19:59 Sennosides (Senokot) 1 tab BEDTIME ORAL 02/10/18 21:00 03/08/18 20:59 Tamsulosin HCl (Flomax) 0.4 mg BEDTIME ORAL 02/10/18 21:00 03/08/18 20:59 Vitamin B Complex (Vitamin B Complex) 1 tab BEDTIME ORAL 02/10/18 21:00 03/08/18 20:59 Vitamin D (Vitamin D) 1,000 intlu DAILY ORAL 02/10/18 09:00 03/08/18 08:59 02/10/18 09:52 Warfarin Sodium (Coumadin per pharmacy) 1 ea DAILY PRN MISC Per rx protocol 02/10/18 09:00 03/08/18 08:29 Pavan Delacruz MD Feb 10, 2018 13:36
[2018-02-10] MEDS: Dorzolamide 2% 10ml Btl RIGHT EYE SCH ×2 (14:34→18:25)
[2018-02-10] MEDS: Pantoprazole Inj IVP SCH (14:40)
--- NOTE | 2018-02-10 16:47 | Diagnostic Imaging Report ---
Indication: Cough Technique: One view of the chest Comparison: 02/06/2018 Findings: Left chest bifocal AICD is again demonstrated. Atelectatic changes or scarring are seen in the bilateral perihilar regions and lung bases, slightly increased at the right lung base. No focal airspace consolidation. The heart remains enlarged. Median sternotomy sutures are again demonstrated Impression: Increased right basilar atelectasis Otherwise stable findings as described over 4 days
[2018-02-10] MEDS: Sennosides 8.6mg ORAL SCH (21:00)
[2018-02-10] MEDS: Latanoprost 0.005% Opth 2.5ml Soln BOTH EYES SCH (21:00)
[2018-02-10] MEDS: Tamsulosin 0.4mg cap ORAL SCH (22:38)
[2018-02-10] MEDS: Vitamin B Complex Tab ORAL SCH (22:39)
[2018-02-11] MEDS: Albuterol/Ipratropium 3ml neb HHN SCH ×6 (01:00→23:36)
--- NOTE | 2018-02-11 01:15 | Progress Note ---
DATE: 02/10/2018 CARDIOLOGY PROGRESS NOTE SUBJECTIVE: The patient has no new complaints. He is feeling better and remains off BiPAP support. Appetite remains poor. OBJECTIVE: VITAL SIGNS: Blood pressure 107/57, pulse 80, respiratory rate 24. Monitored rhythm, AFib, V-paced. LUNGS: Diminished breath sounds. Few rales. HEART: Regular rhythm and rate. Normal S1. Paradoxically split S2. ABDOMEN: Soft. EXTREMITIES: No edema. LABORATORY AND DIAGNOSTIC DATA: Chest x-ray today revealed increased atelectasis at the right base. Sodium 134, potassium 3.3, bicarbonate 30, BUN 30, and creatinine 1.3. Magnesium 2.1. Pro-natriuretic peptide increased to 11,000. Albumin 2.8. IMPRESSION: 1. Acute on chronic systolic and diastolic congestive heart failure. 2. Acute on chronic kidney failure, improved. 3. Hypokalemia. 4. Cardiac defibrillator. 5. Anemia of chronic kidney disease. 6. Paroxysmal atrial fibrillation. 7. Dysphagia with adequate swallow function. 8. Probable urinary tract infection with BPH and urinary retention. PLAN: 1. Antimicrobials. 2. Off IV fluid. 3. Continue digoxin and beta-kristin. 4. Periodic diuresis based on clinical parameters. 5. Warfarin to INR goal of 2 to 3. Charlie Ashraf M.D. DR: Madina JOB#: [id number] CC:
[2018-02-11] MEDS: Levodopa/Carbidopa 25/100 tab ORAL SCH ×6 (01:29→21:58)
[2018-02-11 04:00] VITALS: BP 88/57
[2018-02-11] MEDS: NovoLOG Insulin Flexpen SUBQ SCH ×4 (06:27→21:00)
[2018-02-11] MEDS: Piperacillin/Tazobactam 3.375 GM in D5W 110 ML IVPB SCH (06:27)
[2018-02-11 08:00] VITALS: BP 102/67
[2018-02-11 08:52] LABS: INR 1.8 (0.9-1.1)
[2018-02-11 09:10] LABS: ALANINE AMINOTRANSFERASE 7 U/L (12-78); ALBUMIN 2.6 G/DL (3.4-5.0); ALBUMIN/GLOBULIN RATIO 0.6 (1.0-2.7); ALKALINE PHOSPHATASE 76 U/L (46-116); ANION GAP 8 mmol/L (5-15); ASPARTATE AMINO TRANSFERASE 38 U/L (15-37); BILIRUBIN,TOTAL 0.7 MG/DL (0.2-1.0); BLOOD UREA NITROGEN 24 mg/dL (7-18); CALCIUM 9.3 MG/DL (8.5-10.1); CARBON DIOXIDE 29 MMOL/L (21-32); CHLORIDE 96 MMOL/L (98-107); CREATININE 1.4 MG/DL (0.55-1.30); POTASSIUM 3.7 MMOL/L (3.5-5.1); SODIUM 133 MMOL/L (136-145)
[2018-02-11] MEDS: Aspirin Baby 81mg ORAL SCH (10:08)
[2018-02-11] MEDS: Vitamin D 1000 IU Tab ORAL SCH (10:09)
[2018-02-11] MEDS: Digoxin 0.125mg tab ORAL SCH (10:09)
[2018-02-11] MEDS: Furosemide 40mg tab ORAL SCH (10:10)
[2018-02-11] MEDS: Memantine 10mg tab ORAL SCH ×2 (10:10→17:46)
[2018-02-11] MEDS: Ascorbic Acid 500mg tab ORAL SCH (10:10)
[2018-02-11] MEDS: Milk of Magnesia 30ml Ud ORAL SCH (10:11)
[2018-02-11] MEDS: Pantoprazole Inj IVP SCH (10:11)
[2018-02-11] MEDS: Carvedilol 6.25mg Tab ORAL SCH ×2 (10:11→21:00)
[2018-02-11] MEDS: Docusate 100mg cap ORAL SCH ×2 (10:11→17:46)
[2018-02-11] MEDS: Dorzolamide 2% 10ml Btl RIGHT EYE SCH ×2 (10:18→17:47)
[2018-02-11] MEDS: Levemir Flexpen SUBQ SCH ×2 (10:19→17:52)
--- NOTE | 2018-02-11 11:32 | Infectious Diseases Prog Note ---
Assessment/Plan Assessment/Plan antibiotics : zosyn A 1. UTI s/p rx 2. renal failure improving 3. COPD 4. CHF 5. diabetes 6. hypertension 7. 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 d/c zosyn 2. observe off antibiotics Subjective ROS Limited/Unobtainable: Yes Allergies: Coded Allergies: APIXABAN (Unverified Allergy, Unknown, 02/06/18) BUMETANIDE (Unverified Allergy, Unknown, 02/06/18) SPIRONOLACTONE (Unverified Allergy, Unknown, 02/06/18) Objective Vital Signs Last 24 Hour Vital Signs Date Time Temp Pulse Resp B/P (MAP) Pulse Ox O2 Delivery O2 Flow Rate FiO2 02/11/18 10:11 82 102/67 02/11/18 10:09 82 02/11/18 08:20 82 20 96 Nasal Cannula 2.0 28 02/11/18 08:00 97.5 78 20 102/67 97 97.5 02/11/18 07:59 76 16 92 Nasal Cannula 2.0 28 02/11/18 07:59 92 Nasal Cannula 2.0 28 02/11/18 07:59 Nasal Cannula 2.0 28 02/11/18 04:00 97.5 77 24 88/57 100 97.5 02/11/18 04:00 75 02/11/18 03:32 74 20 96 Nasal Cannula 2.0 28 02/11/18 03:32 71 16 95 Nasal Cannula 2.0 28 02/11/18 00:00 75 02/11/18 00:00 97.3 75 22 98 97.3 02/11/18 00:00 84 20 97 Nasal Cannula 2.0 28 02/11/18 00:00 74 16 96 Nasal Cannula 2.0 28 02/10/18 22:48 73 120/60 02/10/18 22:46 73 120/60 02/10/18 20:00 80 20 97 Nasal Cannula 2.0 28 02/10/18 20:00 78 18 94 Nasal Cannula 2.0 28 02/10/18 20:00 80 02/10/18 20:00 85 98/60 99 02/10/18 20:00 94 Nasal Cannula 2.0 28 02/10/18 20:00 Nasal Cannula 2.0 28 02/10/18 16:00 98.1 69 20 112/59 98 Nasal Cannula 2.0 98.1 02/10/18 16:00 78 02/10/18 15:10 77 16 99 Nasal Cannula 2.0 28 02/10/18 15:00 75 18 96 Nasal Cannula 2.0 28 02/10/18 12:00 80 02/10/18 12:00 98.1 73 18 108/60 97 Nasal Cannula 2.0 98.1 Height (Feet): 6 Height (Inches): 0.00 Weight (Pounds): 178 Respiratory/Chest: lungs clear Cardiovascular: normal rate, regular rhythm, no gallop/murmur Abdomen: soft, non tender Extremities: no edema Laboratory Tests Test 02/11/18 08:25 Prothrombin Time 19.1 SEC (9.30-11.50) H Prothromb Time International Ratio 1.8 (0.9-1.1) H Sodium Level 133 MMOL/L (136-145) L Potassium Level 3.7 MMOL/L (3.5-5.1) Chloride Level 96 MMOL/L (98-107) L Carbon Dioxide Level 29 MMOL/L (21-32) Anion Gap 8 mmol/L (5-15) Blood Urea Nitrogen 24 mg/dL (7-18) H Creatinine 1.4 MG/DL (0.55-1.30) H Estimat Glomerular Filtration Rate mL/min (>60) Glucose Level 96 MG/DL (74-106) Calcium Level 9.3 MG/DL (8.5-10.1) Total Bilirubin 0.7 MG/DL (0.2-1.0) Aspartate Amino Transf (AST/SGOT) 38 U/L (15-37) H Alanine Aminotransferase (ALT/SGPT) 7 U/L (12-78) L Alkaline Phosphatase 76 U/L (46-116) Total Protein 6.6 G/DL (6.4-8.2) Albumin 2.6 G/DL (3.4-5.0) L Globulin 4.0 g/dL Albumin/Globulin Ratio 0.6 (1.0-2.7) L Current Medications Medications (Trade) Dose Ordered Sig/Karolina Route PRN Reason Start Time Stop Time Status Last Admin Dose Admin Acetaminophen (Tylenol) 650 mg Q6H PRN ORAL Mild Pain (Pain Scale 1-3) 02/10/18 08:30 03/08/18 08:29 Ascorbic Acid (Vitamin C) 500 mg DAILY ORAL 02/10/18 09:00 03/08/18 08:59 02/11/18 10:10 Aspirin (ASA) 81 mg DAILY ORAL 02/10/18 09:00 03/09/18 08:59 02/11/18 10:08 Atorvastatin Calcium (Lipitor) 10 mg BEDTIME ORAL 02/10/18 21:00 03/10/18 20:59 02/10/18 22:40 Bisacodyl (Dulcolax) 10 mg DAILYPRN PRN RECTAL Constipation 02/10/18 09:00 03/08/18 08:59 Calcium Carbonate (Os-Rivas) 1,250 mg BIDPC ORAL 02/10/18 09:00 03/08/18 08:59 02/11/18 10:08 Carbidopa/Levodopa (Sinemet 25/100) 1 tab Q4HR ORAL 02/10/18 09:00 03/08/18 08:59 02/11/18 10:18 Carvedilol (Coreg) 6.25 mg EVERY 12 HOURS ORAL 02/10/18 09:00 03/10/18 08:59 02/11/18 10:11 Clonidine HCl (Catapres Tab) 0.1 mg Q4H PRN ORAL SBP greater than 160 02/10/18 09:00 03/08/18 08:59 Dextrose (Dextrose 50%) 25 ml STAT PRN IV Hypoglycemia 02/10/18 09:00 03/08/18 08:59 Dextrose (Dextrose 50%) 50 ml STAT PRN IV Hypoglycemia 02/10/18 09:00 03/08/18 08:59 02/10/18 17:58 Digoxin (Lanoxin) 0.125 mg DAILY ORAL 02/10/18 09:00 03/08/18 08:59 02/11/18 10:09 Docusate Sodium (Colace) 100 mg TWICE A DAY ORAL 02/10/18 09:00 03/08/18 08:59 02/11/18 10:11 Dorzolamide HCl (Trusopt) 1 drop TWICE A DAY RIGHT EYE 02/10/18 09:00 03/08/18 09:59 02/11/18 10:18 Ferrous Sulfate (Feosol) 325 mg THREE TIMES A DAY ORAL 02/10/18 09:00 03/08/18 08:59 02/11/18 10:10 Finasteride (Proscar) 5 mg DAILY ORAL 02/10/18 09:00 03/08/18 08:59 02/11/18 10:11 Folic Acid (Folate) 1 mg DAILY ORAL 02/10/18 09:00 03/08/18 08:59 02/11/18 10:08 Furosemide (Lasix) 40 mg DAILY ORAL 02/11/18 09:00 03/13/18 08:59 02/11/18 10:10 Insulin Aspart (NovoLOG) BEFORE MEALS AND HS SUBQ 02/10/18 11:30 03/08/18 11:29 02/10/18 11:49 Insulin Detemir (Levemir) 8 units BID SUBQ 02/10/18 09:00 03/08/18 08:59 02/11/18 10:19 Latanoprost (Xalatan) 1 drop BEDTIME BOTH EYES 02/10/18 21:00 03/08/18 20:59 Magnesium Hydroxide (Mom) 30 ml DAILY ORAL 02/10/18 09:00 03/08/18 08:59 02/11/18 10:11 Memantine (Namenda) 10 mg TWICE A DAY ORAL 02/10/18 09:00 03/08/18 08:59 02/11/18 10:10 Multivitamins (Multivitamins) 1 tab DAILY ORAL 02/10/18 09:00 03/08/18 08:59 02/11/18 10:10 Pantoprazole (Protonix) 40 mg DAILY IVP 02/10/18 14:00 03/12/18 13:59 02/11/18 10:11 Piperacillin Sod/ Tazobactam Sod 3.375 gm/Dextrose 110 ml @ 27.5 mls/hr EVERY 8 HOURS IVPB 02/10/18 14:00 02/11/18 13:59 02/11/18 06:27 Potassium Chloride (K-Dur) 20 meq DAILY ORAL 02/11/18 09:00 03/13/18 08:59 02/11/18 10:11 Sennosides (Senokot) 1 tab BEDTIME ORAL 02/10/18 21:00 03/08/18 20:59 Tamsulosin HCl (Flomax) 0.4 mg BEDTIME ORAL 02/10/18 21:00 03/08/18 20:59 02/10/18 22:38 Vitamin B Complex (Vitamin B Complex) 1 tab BEDTIME ORAL 02/10/18 21:00 03/08/18 20:59 02/10/18 22:39 Vitamin D (Vitamin D) 1,000 intlu DAILY ORAL 02/10/18 09:00 03/08/18 08:59 02/11/18 10:09 Warfarin Sodium (Coumadin per pharmacy) 1 ea DAILY PRN MISC Per rx protocol 02/10/18 09:00 03/08/18 08:29 PETE HERNANDEZ Feb 11, 2018 11:32
[2018-02-11 12:00] VITALS: BP 98/58
[2018-02-11 16:00] VITALS: BP 102/57
[2018-02-11] MEDS ORDERED: Tubing IV Secondary IV ONE (17:28)
[2018-02-11] MEDS ORDERED: NS 500ML ONE (17:28)
--- NOTE | 2018-02-11 18:46 | General Progress Note ---
Assessment/Plan Problem List: (1) Anemia ICD Codes: D64.9 - Anemia, unspecified SNOMED: 893425433 Qualifiers: Qualified Codes: D64.9 - Anemia, unspecified (2) CKD (chronic kidney disease) ICD Codes: N18.9 - Chronic kidney disease, unspecified SNOMED: 822952342 Qualifiers: Qualified Codes: N18.9 - Chronic kidney disease, unspecified (3) Toxic metabolic encephalopathy ICD Codes: G92 - Toxic encephalopathy SNOMED: 126693820 (4) CHF (congestive heart failure) ICD Codes: I50.9 - Heart failure, unspecified SNOMED: 32423424 Qualifiers: Qualified Codes: I50.9 - Heart failure, unspecified (5) UTI (urinary tract infection) ICD Codes: N39.0 - Urinary tract infection, site not specified SNOMED: 25223770 Qualifiers: Qualified Codes: N30.00 - Acute cystitis without hematuria Assessment/Plan iv abx swallow eval/therapy no gt/ngt per conservator follow up cultures dc ivf lasix po check cxr replace lytes monitor fluid status Subjective ROS Limited/Unobtainable: No Constitutional: Reports: malaise, weakness HEENT: Reports: no symptoms Cardiovascular: Reports: no symptoms Respiratory: Reports: cough Gastrointestinal/Abdominal: Reports: no symptoms Genitourinary: Reports: no symptoms Neurologic/Psychiatric: Reports: pre-existing deficit Endocrine: Reports: no symptoms Hematologic/Lymphatic: Reports: anemia Allergies: Coded Allergies: APIXABAN (Unverified Allergy, Unknown, 02/06/18) BUMETANIDE (Unverified Allergy, Unknown, 02/06/18) SPIRONOLACTONE (Unverified Allergy, Unknown, 02/06/18) All Systems: reviewed and negative except above Subjective no events. w/o complaints. off bipap. feels better. labs reviewed. cards/id noted. difficulty swallowing. not hungry. off ivf. on po lasix Objective Last 24 Hour Vital Signs Date Time Temp Pulse Resp B/P (MAP) Pulse Ox O2 Delivery O2 Flow Rate FiO2 02/11/18 16:15 80 18 98 Nasal Cannula 2.0 28 02/11/18 16:00 76 18 94 Nasal Cannula 2.0 28 02/11/18 16:00 97.0 75 20 102/57 95 97.0 02/11/18 15:24 75 02/11/18 14:15 77 22 Venturi Mask 8.0 40 02/11/18 12:17 76 02/11/18 12:00 97.0 75 20 98/58 96 97.0 02/11/18 10:11 82 102/67 02/11/18 10:09 82 02/11/18 08:20 82 20 96 Nasal Cannula 2.0 28 02/11/18 08:05 75 02/11/18 08:00 97.5 78 20 102/67 97 97.5 02/11/18 07:59 76 16 92 Nasal Cannula 2.0 28 02/11/18 07:59 92 Nasal Cannula 2.0 28 02/11/18 07:59 Nasal Cannula 2.0 28 02/11/18 04:00 97.5 77 24 88/57 100 97.5 02/11/18 04:00 75 02/11/18 03:32 74 20 96 Nasal Cannula 2.0 28 02/11/18 03:32 71 16 95 Nasal Cannula 2.0 28 02/11/18 00:00 75 02/11/18 00:00 97.3 75 22 98 97.3 02/11/18 00:00 84 20 97 Nasal Cannula 2.0 28 02/11/18 00:00 74 16 96 Nasal Cannula 2.0 28 02/10/18 22:48 73 120/60 02/10/18 22:46 73 120/60 02/10/18 20:00 80 20 97 Nasal Cannula 2.0 28 02/10/18 20:00 78 18 94 Nasal Cannula 2.0 28 02/10/18 20:00 80 02/10/18 20:00 85 98/60 99 02/10/18 20:00 94 Nasal Cannula 2.0 28 02/10/18 20:00 Nasal Cannula 2.0 28 Intake and Output 02/10/18 02/11/18 19:00 07:00 Intake Total 360 ml Output Total 300 ml 900 ml Balance 60 ml -900 ml Intake Oral 360 ml Output Urine Total 300 ml 900 ml # Voids 1 # Bowel Movements 3 3 Laboratory Tests 02/11/18 08:25: Prothrombin Time 19.1H, Prothromb Time International Ratio 1.8H, Sodium Level 133L, Potassium Level 3.7, Chloride Level 96L, Carbon Dioxide Level 29, Anion Gap 8, Blood Urea Nitrogen 24H, Creatinine 1.4H, Estimat Glomerular Filtration Rate , Glucose Level 96, Calcium Level 9.3, Total Bilirubin 0.7, Aspartate Amino Transf (AST/SGOT) 38H, Alanine Aminotransferase (ALT/SGPT) 7L, Alkaline Phosphatase 76, Total Protein 6.6, Albumin 2.6L, Globulin 4.0, Albumin/Globulin Ratio 0.6L Height (Feet): 6 Height (Inches): 0.00 Weight (Pounds): 178 Objective General Appearance: WD/WN, alert Neck: supple Cardiovascular: regular rhythm Respiratory/Chest: chest wall non-tender, lungs clear, normal breath sounds, no respiratory distress Abdomen: normal bowel sounds, non tender, soft, no organomegaly Edema: no edema noted Arm (L), no edema noted Arm (R), no edema noted Leg (L), no edema noted Leg (R), no edema noted Pedal (L), no edema noted Pedal (R), no edema noted Generalized Sai Berry MD Feb 11, 2018 18:46
[2018-02-11 20:00] VITALS: BP 95/51
[2018-02-11] MEDS: Latanoprost 0.005% Opth 2.5ml Soln BOTH EYES SCH (21:00)
[2018-02-11] MEDS: Sennosides 8.6mg ORAL SCH (21:00)
[2018-02-11] MEDS: Tamsulosin 0.4mg cap ORAL SCH (21:46)
[2018-02-11] MEDS: Vitamin B Complex Tab ORAL SCH (21:46)
[2018-02-12] VITALS: BP 125/74
[2018-02-12] MEDS: Levodopa/Carbidopa 25/100 tab ORAL SCH ×6 (01:00→21:53)
--- NOTE | 2018-02-12 02:45 | Progress Note ---
DATE: 02/11/2018 CARDIOLOGY PROGRESS NOTE SUBJECTIVE: The patient is without complaints. He is off BiPAP. No respiratory distress noted. He is on maintenance dose diuretics at this time. OBJECTIVE: VITAL SIGNS: Blood pressure 195/51, pulse 75, respiratory rate 19, earlier blood pressure was 102/57. LUNGS: Good breath sounds. HEART: Regular rhythm rate. Normal S1, S2. Monitored rhythm, atrial fib, V-paced. ABDOMEN: Soft. No edema. LABORATORY AND DIAGNOSTIC DATA: Sodium 133, bicarbonate 29, potassium 3.7, BUN 24, creatinine 1.4. Albumin 2.6. Pro-natriuretic peptide yesterday had increased to 11,000. INR is 1.8. IMPRESSION: 1. Low range blood pressure. 2. Cardiomyopathy. 3. Acute on chronic systolic and diastolic congestive heart failure. 4. Paroxysmal atrial fibrillation. 5. Slightly subtherapeutic INR. PLAN: 1. Off antibiotics. 2. Monitor volume status. 3. May need fluid challenge. 4. Re-culture for temperature spike. 5. Titrate warfarin to INR of 2 to 3. 6. Hold diuretics for low range of blood pressure. Charlie Ashraf M.D. DR: CHAPITO JOB#: [id number] CC:
[2018-02-12] MEDS: Albuterol/Ipratropium 3ml neb HHN SCH ×6 (03:31→23:13)
[2018-02-12 04:00] VITALS: BP 91/50
[2018-02-12] MEDS: NovoLOG Insulin Flexpen SUBQ SCH ×4 (06:26→21:55)
[2018-02-12 07:57] LABS: ALANINE AMINOTRANSFERASE 9 U/L (12-78); ALBUMIN 2.6 G/DL (3.4-5.0); ALBUMIN/GLOBULIN RATIO 0.6 (1.0-2.7); ALKALINE PHOSPHATASE 77 U/L (46-116); ANION GAP 6 mmol/L (5-15); ASPARTATE AMINO TRANSFERASE 41 U/L (15-37); BILIRUBIN,TOTAL 0.5 MG/DL (0.2-1.0); BLOOD UREA NITROGEN 27 mg/dL (7-18); CALCIUM 9.6 MG/DL (8.5-10.1); CARBON DIOXIDE 27 MMOL/L (21-32); CHLORIDE 99 MMOL/L (98-107); CREATININE 1.4 MG/DL (0.55-1.30); POTASSIUM 4.1 MMOL/L (3.5-5.1); SODIUM 132 MMOL/L (136-145)
[2018-02-12 08:00] VITALS: BP 98/61
[2018-02-12] MEDS: Carvedilol 6.25mg Tab ORAL SCH ×2 (09:00→21:00)
[2018-02-12] MEDS: Furosemide 40mg tab ORAL SCH (10:06)
[2018-02-12] MEDS: Vitamin D 1000 IU Tab ORAL SCH (10:06)
[2018-02-12] MEDS: Aspirin Baby 81mg ORAL SCH (10:06)
[2018-02-12] MEDS: Docusate 100mg cap ORAL SCH ×2 (10:06→17:03)
[2018-02-12] MEDS: Digoxin 0.125mg tab ORAL SCH (10:06)
[2018-02-12] MEDS: Ascorbic Acid 500mg tab ORAL SCH (10:07)
[2018-02-12] MEDS: Pantoprazole Inj IVP SCH (10:07)
[2018-02-12] MEDS: Memantine 10mg tab ORAL SCH ×2 (10:07→17:03)
[2018-02-12] MEDS: Milk of Magnesia 30ml Ud ORAL SCH (10:07)
[2018-02-12] MEDS: Dorzolamide 2% 10ml Btl RIGHT EYE SCH ×2 (10:18→17:04)
[2018-02-12] MEDS: Levemir Flexpen SUBQ SCH ×2 (10:20→18:04)
--- NOTE | 2018-02-12 10:49 | General Progress Note ---
Assessment/Plan Problem List: (1) Anemia ICD Codes: D64.9 - Anemia, unspecified SNOMED: 249399825 Qualifiers: Qualified Codes: D64.9 - Anemia, unspecified (2) CKD (chronic kidney disease) ICD Codes: N18.9 - Chronic kidney disease, unspecified SNOMED: 865871075 Qualifiers: Qualified Codes: N18.9 - Chronic kidney disease, unspecified (3) Toxic metabolic encephalopathy ICD Codes: G92 - Toxic encephalopathy SNOMED: 830099631 (4) CHF (congestive heart failure) ICD Codes: I50.9 - Heart failure, unspecified SNOMED: 77787940 Qualifiers: Qualified Codes: I50.9 - Heart failure, unspecified (5) UTI (urinary tract infection) ICD Codes: N39.0 - Urinary tract infection, site not specified SNOMED: 20628776 Qualifiers: Qualified Codes: N30.00 - Acute cystitis without hematuria Status: stable, progressing Assessment/Plan iv abx swallow eval/therapy no gt/ngt per conservator follow up cultures dc ivf lasix po check cxr replace lytes monitor fluid status Subjective ROS Limited/Unobtainable: Yes Constitutional: Reports: malaise, weakness HEENT: Reports: no symptoms Cardiovascular: Reports: edema Respiratory: Reports: cough Gastrointestinal/Abdominal: Reports: difficulty swallowing Genitourinary: Reports: no symptoms Neurologic/Psychiatric: Reports: pre-existing deficit Endocrine: Reports: no symptoms Hematologic/Lymphatic: Reports: anemia Allergies: Coded Allergies: APIXABAN (Unverified Allergy, Unknown, 02/06/18) BUMETANIDE (Unverified Allergy, Unknown, 02/06/18) SPIRONOLACTONE (Unverified Allergy, Unknown, 02/06/18) All Systems: reviewed and negative except above Subjective no events. w/o complaints. off bipap.labs reviewed. cards/id noted. difficulty swallowing. not hungry. off ivf. on po lasix Objective Last 24 Hour Vital Signs Date Time Temp Pulse Resp B/P (MAP) Pulse Ox O2 Delivery O2 Flow Rate FiO2 02/12/18 10:42 72 16 100 Nasal Cannula 2.0 28 02/12/18 10:35 73 16 100 Nasal Cannula 2.0 28 02/12/18 10:06 77 02/12/18 09:00 77 98/61 02/12/18 06:58 77 16 100 Nasal Cannula 2.0 02/12/18 06:52 75 16 100 Nasal Cannula 2.0 02/12/18 06:51 100 Nasal Cannula 2.0 02/12/18 06:51 Nasal Cannula 2.0 02/12/18 04:00 98.2 74 19 91/50 97 98.2 02/12/18 04:00 75 02/12/18 03:41 76 16 99 Nasal Cannula 2.0 02/12/18 03:31 76 16 98 Nasal Cannula 2.0 02/12/18 00:00 75 02/12/18 00:00 97.3 75 18 125/74 98 97.3 02/11/18 23:46 78 18 98 Nasal Cannula 2.0 02/11/18 23:36 78 16 97 Nasal Cannula 2.0 02/11/18 20:17 79 18 99 Nasal Cannula 2.0 28 02/11/18 20:07 98 Nasal Cannula 2.0 28 02/11/18 20:07 Nasal Cannula 2.0 28 02/11/18 20:07 73 16 98 Nasal Cannula 2.0 28 02/11/18 20:00 97.0 75 19 95/51 98 97.0 02/11/18 20:00 75 02/11/18 16:15 80 18 98 Nasal Cannula 2.0 28 02/11/18 16:00 76 18 94 Nasal Cannula 2.0 28 02/11/18 16:00 97.0 75 20 102/57 95 97.0 02/11/18 15:24 75 02/11/18 14:15 77 22 Venturi Mask 8.0 40 02/11/18 12:17 76 02/11/18 12:00 97.0 75 20 98/58 96 97.0 Intake and Output 02/11/18 02/12/18 19:00 07:00 Intake Total 240 ml Output Total 500 ml 600 ml Balance -260 ml -600 ml Intake Oral 240 ml Output Urine Total 500 ml 600 ml # Bowel Movements 3 Laboratory Tests 02/12/18 07:00: Prothrombin Time 20.9H, Prothromb Time International Ratio 2.0H, Sodium Level 132L, Potassium Level 4.1, Chloride Level 99, Carbon Dioxide Level 27, Anion Gap 6, Blood Urea Nitrogen 27H, Creatinine 1.4H, Estimat Glomerular Filtration Rate , Glucose Level 55L, Calcium Level 9.6, Total Bilirubin 0.5, Aspartate Amino Transf (AST/SGOT) 41H, Alanine Aminotransferase (ALT/SGPT) 9L, Alkaline Phosphatase 77, Total Protein 6.7, Albumin 2.6L, Globulin 4.1, Albumin/Globulin Ratio 0.6L Height (Feet): 6 Height (Inches): 0.00 Weight (Pounds): 172 Objective General Appearance: WD/WN, alert Neck: supple Cardiovascular: regular rhythm Respiratory/Chest: chest wall non-tender, lungs clear, normal breath sounds, no respiratory distress Abdomen: normal bowel sounds, non tender, soft, no organomegaly Edema: no edema noted Arm (L), no edema noted Arm (R), no edema noted Leg (L), no edema noted Leg (R), no edema noted Pedal (L), no edema noted Pedal (R), no edema noted Generalized Sai Berry MD Feb 12, 2018 10:49
--- NOTE | 2018-02-12 11:58 | Infectious Diseases Prog Note ---
Assessment/Plan Assessment/Plan A 1. UTI treated 2. renal failure stable 3. COPD 4. CHF 5. diabetes 6. 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 Observe off antibiotic Subjective ROS Limited/Unobtainable: Yes Allergies: Coded Allergies: APIXABAN (Unverified Allergy, Unknown, 02/06/18) BUMETANIDE (Unverified Allergy, Unknown, 02/06/18) SPIRONOLACTONE (Unverified Allergy, Unknown, 02/06/18) Objective Vital Signs Last 24 Hour Vital Signs Date Time Temp Pulse Resp B/P (MAP) Pulse Ox O2 Delivery O2 Flow Rate FiO2 02/12/18 10:42 72 16 100 Nasal Cannula 2.0 02/12/18 10:35 73 16 100 Nasal Cannula 2.0 28 02/12/18 10:06 77 02/12/18 09:00 77 98/61 02/12/18 06:58 77 16 100 Nasal Cannula 2.0 28 02/12/18 06:52 75 16 100 Nasal Cannula 2.0 28 02/12/18 06:51 100 Nasal Cannula 2.0 28 02/12/18 06:51 Nasal Cannula 2.0 28 02/12/18 04:00 98.2 74 19 91/50 97 98.2 02/12/18 04:00 75 02/12/18 03:41 76 16 99 Nasal Cannula 2.0 28 02/12/18 03:31 76 16 98 Nasal Cannula 2.0 28 02/12/18 00:00 75 02/12/18 00:00 97.3 75 18 125/74 98 97.3 02/11/18 23:46 78 18 98 Nasal Cannula 2.0 28 02/11/18 23:36 78 16 97 Nasal Cannula 2.0 28 02/11/18 20:17 79 18 99 Nasal Cannula 2.0 28 02/11/18 20:07 98 Nasal Cannula 2.0 28 02/11/18 20:07 Nasal Cannula 2.0 28 02/11/18 20:07 73 16 98 Nasal Cannula 2.0 28 02/11/18 20:00 97.0 75 19 95/51 98 97.0 02/11/18 20:00 75 02/11/18 16:15 80 18 98 Nasal Cannula 2.0 28 6/30/18 16:00 76 18 94 Nasal Cannula 2.0 28 02/11/18 16:00 97.0 75 20 102/57 95 97.0 02/11/18 15:24 75 02/11/18 14:15 77 22 Venturi Mask 8.0 40 02/11/18 12:17 76 02/11/18 12:00 97.0 75 20 98/58 96 97.0 Height (Feet): 6 Height (Inches): 0.00 Weight (Pounds): 172 HEENT: other - dry mouth Cardiovascular: normal rate Abdomen: soft, non tender Extremities: no edema Neurologic/Psychiatric: aphasia, other - opens eyes Laboratory Tests Test 02/12/18 07:00 Prothrombin Time 20.9 SEC (9.30-11.50) H Prothromb Time International Ratio 2.0 (0.9-1.1) H Sodium Level 132 MMOL/L (136-145) L Potassium Level 4.1 MMOL/L (3.5-5.1) Chloride Level 99 MMOL/L (98-107) Carbon Dioxide Level 27 MMOL/L (21-32) Anion Gap 6 mmol/L (5-15) Blood Urea Nitrogen 27 mg/dL (7-18) H Creatinine 1.4 MG/DL (0.55-1.30) H Estimat Glomerular Filtration Rate mL/min (>60) Glucose Level 55 MG/DL (74-106) L Calcium Level 9.6 MG/DL (8.5-10.1) Total Bilirubin 0.5 MG/DL (0.2-1.0) Aspartate Amino Transf (AST/SGOT) 41 U/L (15-37) H Alanine Aminotransferase (ALT/SGPT) 9 U/L (12-78) L Alkaline Phosphatase 77 U/L (46-116) Total Protein 6.7 G/DL (6.4-8.2) Albumin 2.6 G/DL (3.4-5.0) L Globulin 4.1 g/dL Albumin/Globulin Ratio 0.6 (1.0-2.7) L Current Medications Medications (Trade) Dose Ordered Sig/Karolina Route PRN Reason Start Time Stop Time Status Last Admin Dose Admin Acetaminophen (Tylenol) 650 mg Q6H PRN ORAL Mild Pain (Pain Scale 1-3) 02/10/18 08:30 03/08/18 08:29 Albuterol/ Ipratropium (Albuterol/ Ipratropium) 3 ml Q4HRT HHN 02/11/18 15:00 02/16/18 14:59 02/12/18 10:35 Ascorbic Acid (Vitamin C) 500 mg DAILY ORAL 02/10/18 09:00 03/08/18 08:59 02/12/18 10:07 Aspirin (ASA) 81 mg DAILY ORAL 02/10/18 09:00 03/09/18 08:59 02/12/18 10:06 Atorvastatin Calcium (Lipitor) 10 mg BEDTIME ORAL 02/10/18 21:00 03/10/18 20:59 02/11/18 21:46 Bisacodyl (Dulcolax) 10 mg DAILYPRN PRN RECTAL Constipation 02/10/18 09:00 03/08/18 08:59 Calcium Carbonate (Os-Rivas) 1,250 mg BIDPC ORAL 02/10/18 09:00 03/08/18 08:59 02/12/18 10:06 Carbidopa/Levodopa (Sinemet 25/100) 1 tab Q4HR ORAL 02/10/18 09:00 03/08/18 08:59 02/12/18 10:18 Carvedilol (Coreg) 6.25 mg EVERY 12 HOURS ORAL 02/10/18 09:00 03/10/18 08:59 02/11/18 10:11 Clonidine HCl (Catapres Tab) 0.1 mg Q4H PRN ORAL SBP greater than 160 02/10/18 09:00 03/08/18 08:59 Dextrose (Dextrose 50%) 25 ml STAT PRN IV Hypoglycemia 02/10/18 09:00 03/08/18 08:59 Dextrose (Dextrose 50%) 50 ml STAT PRN IV Hypoglycemia 02/10/18 09:00 03/08/18 08:59 02/10/18 17:58 Digoxin (Lanoxin) 0.125 mg DAILY ORAL 02/10/18 09:00 03/08/18 08:59 02/12/18 10:06 Docusate Sodium (Colace) 100 mg TWICE A DAY ORAL 02/10/18 09:00 03/08/18 08:59 02/12/18 10:06 Dorzolamide HCl (Trusopt) 1 drop TWICE A DAY RIGHT EYE 02/10/18 09:00 03/08/18 09:59 02/12/18 10:18 Ferrous Sulfate (Feosol) 325 mg THREE TIMES A DAY ORAL 02/10/18 09:00 03/08/18 08:59 02/12/18 10:07 Finasteride (Proscar) 5 mg DAILY ORAL 02/10/18 09:00 03/08/18 08:59 02/12/18 10:07 Folic Acid (Folate) 1 mg DAILY ORAL 02/10/18 09:00 03/08/18 08:59 02/12/18 10:06 Furosemide (Lasix) 40 mg DAILY ORAL 02/11/18 09:00 03/13/18 08:59 02/12/18 10:06 Insulin Aspart (NovoLOG) BEFORE MEALS AND HS SUBQ 02/10/18 11:30 03/08/18 11:29 02/11/18 16:51 Insulin Detemir (Levemir) 8 units BID SUBQ 02/10/18 09:00 03/08/18 08:59 02/12/18 10:20 Latanoprost (Xalatan) 1 drop BEDTIME BOTH EYES 02/10/18 21:00 03/08/18 20:59 02/11/18 21:00 Magnesium Hydroxide (Mom) 30 ml DAILY ORAL 02/10/18 09:00 03/08/18 08:59 02/12/18 10:07 Memantine (Namenda) 10 mg TWICE A DAY ORAL 02/10/18 09:00 03/08/18 08:59 02/12/18 10:07 Multivitamins (Multivitamins) 1 tab DAILY ORAL 02/10/18 09:00 03/08/18 08:59 02/12/18 10:07 Pantoprazole (Protonix) 40 mg DAILY IVP 02/10/18 14:00 03/12/18 13:59 02/12/18 10:07 Potassium Chloride (K-Dur) 20 meq DAILY ORAL 02/11/18 09:00 03/13/18 08:59 02/12/18 10:06 Sennosides (Senokot) 1 tab BEDTIME ORAL 02/10/18 21:00 03/08/18 20:59 Tamsulosin HCl (Flomax) 0.4 mg BEDTIME ORAL 02/10/18 21:00 03/08/18 20:59 02/11/18 21:46 Vitamin B Complex (Vitamin B Complex) 1 tab BEDTIME ORAL 02/10/18 21:00 03/08/18 20:59 02/11/18 21:46 Vitamin D (Vitamin D) 1,000 intlu DAILY ORAL 02/10/18 09:00 03/08/18 08:59 02/12/18 10:06 Warfarin Sodium (Coumadin per pharmacy) 1 ea DAILY PRN MISC Per rx protocol 02/10/18 09:00 03/08/18 08:29 Warfarin Sodium (Coumadin) 1 mg COUMADIN ORAL 02/12/18 17:00 02/12/18 18:00 Pavan Delacruz MD Feb 12, 2018 11:58
[2018-02-12 12:00] VITALS: BP 92/54
[2018-02-12 16:00] VITALS: BP 101/56
[2018-02-12] MEDS ORDERED: Warfarin Sodium 1mg ORAL SCH (17:00)
[2018-02-12 20:00] VITALS: BP 99/58
[2018-02-12] MEDS: Sennosides 8.6mg ORAL SCH (21:00)
[2018-02-12] MEDS: Latanoprost 0.005% Opth 2.5ml Soln BOTH EYES SCH (21:00)
[2018-02-12] MEDS: Vitamin B Complex Tab ORAL SCH (21:53)
[2018-02-12] MEDS: Tamsulosin 0.4mg cap ORAL SCH (21:53)
[2018-02-13] VITALS: BP 96/60
[2018-02-13] MEDS: Levodopa/Carbidopa 25/100 tab ORAL SCH ×4 (01:27→14:04)
--- NOTE | 2018-02-13 01:45 | Progress Note ---
DATE: 02/12/2018 CARDIOLOGY PROGRESS NOTE SUBJECTIVE: The patient has no new complaints. He is off BiPAP. He has no shortness of breath. OBJECTIVE: VITAL SIGNS: Blood pressure 101/56, pulse 76, and respirations 20. Monitored rhythm atrial fibrillation. Benign pacing. LUNGS: Coarse breath sounds. Scattered rhonchi. No wheezing. HEART: Regular rhythm and rate. Normal S1, paradoxically split S2. ABDOMEN: Soft. EXTREMITIES: No edema. LABORATORY DATA: Sodium 132, potassium 4.1, bicarbonate 27, BUN 27, and creatinine 1.4. Albumin 2.6. INR 2.0. IMPRESSION: 1. Acute on chronic systolic and diastolic congestive heart failure, now compensated. 2. Urinary tract infection with sepsis, now treated. 3. Acute on chronic renal failure, recovered. 4. Paroxysmal atrial fibrillation. 5. Cardiac defibrillator. 6. Nonsustained ventricular tachycardia. 7. Chronic obstructive pulmonary disease with no active bronchospasm. PLAN: 1. Observe off antibiotics. 2. Continue maintenance diuretic. 3. INR goal of 2 to 3 with warfarin achieved. 4. Adjust therapy for low range blood pressure. 5. Discharge planning. Charlie Ashraf M.D. DR: SHERRELL JOB#: [id number] CC:
[2018-02-13] MEDS: Albuterol/Ipratropium 3ml neb HHN SCH ×3 (03:11→10:46)
[2018-02-13 04:00] VITALS: BP 103/58
[2018-02-13] MEDS: NovoLOG Insulin Flexpen SUBQ SCH ×2 (06:01→11:19)
[2018-02-13 08:00] VITALS: BP 98/54
[2018-02-13 08:24] LABS: INR 1.6 (0.9-1.1)
[2018-02-13] MEDS: Milk of Magnesia 30ml Ud ORAL SCH (08:33)
[2018-02-13] MEDS: Memantine 10mg tab ORAL SCH (08:33)
[2018-02-13] MEDS: Ascorbic Acid 500mg tab ORAL SCH (08:34)
[2018-02-13] MEDS: Carvedilol 6.25mg Tab ORAL SCH (08:34)
[2018-02-13] MEDS: Digoxin 0.125mg tab ORAL SCH (08:35)
[2018-02-13] MEDS: Furosemide 40mg tab ORAL SCH (08:35)
[2018-02-13] MEDS: Vitamin D 1000 IU Tab ORAL SCH (08:35)
[2018-02-13] MEDS: Aspirin Baby 81mg ORAL SCH (08:35)
[2018-02-13] MEDS: Docusate 100mg cap ORAL SCH (08:36)
[2018-02-13] MEDS: Dorzolamide 2% 10ml Btl RIGHT EYE SCH (08:36)
[2018-02-13] MEDS: Levemir Flexpen SUBQ SCH (08:39)
[2018-02-13] MEDS: Pantoprazole Inj IVP SCH (08:41)
[2018-02-13 12:00] VITALS: BP 110/58
--- NOTE | 2018-02-13 13:27 | Cardiology Report ---
APPROVED REPORT EXAM: Two-dimensional and M-mode echocardiogram with Doppler and color Doppler. INDICATION Congestive Heart Failure M-Mode DIMENSIONS IVSd1.6 (0.7-1.1cm)Left Atrium (MM)4.5 (1.6-4.0cm) LVDd4.6 (3.5-5.6cm)Aortic Root4.0 (2.0-3.7cm) PWd1.4 (0.7-1.1cm)Aortic Cusp Exc.1.8 (1.5-2.0cm) IVSs1.8 cm LVDs3.6 (2.5-4.0cm) PWs1.6 cm Technically difficult study due to poor acoustical windows. Normal left ventricular systolic function is grossly normal. Study quality precludes accurate assessment of regional wall motion. Mild left ventricular enlargements . Left ventricular ejection fraction estimated to be 55-60 %. Mild left ventricular hypertrophy by 2-D. No evidence of pericardial effusion. Mild bi- atrial enlargement. Right ventricular chamber sizes is within normal limits. Focal aortic valve sclerosis with adequate cusp excursion. Mitral annulus and aortic root calcification. Pulmonic valve not well visualized. Normal tricuspid valve structure. IVC at 1.7 cm without physiologic collapse. A color flow and spectral Doppler study was performed and revealed: Mild aortic regurgitation. Mild to moderate mitral regurgitation. LV diastolic function can not determine due to arrhythmia. Mild tricuspid regurgitation. Tricuspid systolic velocities suggests peak right ventricular systolic pressure of 36 mmHg ,consistent with mild pulmonary hypertension .
[2018-02-13] MEDS ORDERED: Warfarin Sodium 2mg ORAL SCH (17:00)
--- NOTE | 2018-02-13 22:45 | Discharge Summary ---
DATE OF ADMISSION: 02/06/2018 DATE OF DISCHARGE: 02/13/2018 ADMISSION DIAGNOSES: 1. Respiratory failure. 2. Congestive heart failure exacerbation. 3. Urinary tract infection. 4. Possible pneumonia. 5. Chronic obstructive pulmonary disease. 6. Acute on chronic toxic metabolic encephalopathy. 7. Atrial fibrillation. DISCHARGE DIAGNOSES: 1. Respiratory failure. 2. Congestive heart failure exacerbation. 3. Urinary tract infection. 4. Possible pneumonia. 5. Chronic obstructive pulmonary disease. 6. Acute on chronic toxic metabolic encephalopathy. 7. Atrial fibrillation. HOSPITAL COURSE: The patient is an 87-year-old male admitted with complaints of shortness of breath and respiratory failure. Initially, he was placed on BiPAP. He received IV antibiotics. He was weaned off BiPAP. He was aggressively diuresed. ID consultation obtained and adjusted the patient's antibiotics. On discharge, the patient was improved to be discharged back to detention facility. He will keep his Chahal catheter. As renal function did improve, we will place him on the catheter. He will be continued on Coumadin. DISCHARGE MEDICATIONS: Please see discharge medication list for discharge medications. DIET: Pureed diet. ACTIVITIES: Ad-gray. FOLLOWUP: The patient will follow up in one to two days at the detention facility. Sai Berry M.D. DR: AVINASH JOB#: [id number] CC:
--- NOTE | 2018-02-13 23:45 | Progress Note ---
DATE: 02/13/2018 CARDIOLOGY PROGRESS NOTE SUBJECTIVE: The patient is comfortable. No distress. Off BiPAP. Monitor, atrial fibrillation with demand pacing. OBJECTIVE: VITAL SIGNS: Blood pressure 110/58, pulse 74, and respirations 18. LUNGS: Good breath sounds. No wheezing. No rales. HEART: Regular rhythm and rate. Normal S1, paradoxically split S2. A 1/6 systolic apical murmur. ABDOMEN: Soft. EXTREMITIES: Trace edema. IMPRESSION: This is a gentleman with severe cardiomyopathy and acute on chronic systolic and diastolic congestive heart failure, who is now clinically compensated and is status post treatment for urinary tract infection with recovered sepsis. His acute on chronic renal failure has recovered. His paroxysmal atrial fibrillation is rate controlled and he has not had any sustained ventricular ectopy. His cardiac defibrillator is functioning appropriately and will be interrogated as an outpatient on an usual schedule. PLAN: Discharge medication regimen reviewed and the patient is stable for transfer to a care home facility. He will maintain warfarin for an INR goal of 2 to 3 for cardioembolic prophylaxis. Charlie Ashraf M.D. DR: SHERRELL JOB#: [id number] CC:
== END 2018-02-13 14:40 | DRG 871 ==
LOC: EDBD 01:04 → EMR 01:25 → 2W 02:29 → EDBEDREQ 02:42 → 2E 02-10 06:50
DX: A41.9 Sepsis, unspecified organism (principal); I50.43 Acute on chronic combined systolic (congestive) and diastolic (congestive) heart failure; J96.00 Acute respiratory failure, unspecified whether with hypoxia or hypercapnia; N39.0 Urinary tract infection, site not specified; N17.9 Acute kidney failure, unspecified; I13.0 Hypertensive heart and chronic kidney disease with heart failure and stage 1 through stage 4 chronic kidney disease, or unspecified chronic kidney disease; J44.1 Chronic obstructive pulmonary disease with (acute) exacerbation; E87.0 Hyperosmolality and hypernatremia; E44.1 Mild protein-calorie malnutrition; E87.3 Alkalosis; I42.9 Cardiomyopathy, unspecified; E11.22 Type 2 diabetes mellitus with diabetic chronic kidney disease; N18.9 Chronic kidney disease, unspecified; I25.10 Atherosclerotic heart disease of native coronary artery without angina pectoris; I48.0 Paroxysmal atrial fibrillation; Z66 Do not resuscitate; N40.1 Benign prostatic hyperplasia with lower urinary tract symptoms; R33.8 Other retention of urine; N31.9 Neuromuscular dysfunction of bladder, unspecified; Z95.810 Presence of automatic (implantable) cardiac defibrillator; E86.0 Dehydration; Z68.23 Body mass index [BMI] 23.0-23.9, adult; I25.9 Chronic ischemic heart disease, unspecified; E87.6 Hypokalemia; R13.10 Dysphagia, unspecified
CPT/HCPCS: 36415; 36600; 71045; 80053; 80061; 80162; 81003; 82550; 82553; 82803; 82962; 83605; 83735; 83880; 84484; 85025; 85610; 85730; 87040; 87081; 87086; 87181; 93005; 93306; 94640; 94660; 94664; 94760; 99291; J1815; J7620; J8499; S5561